=== PATIENT | female | born 1970 | race Hispanic/Latino ===

== ENCOUNTER 2017-01-25 14:57 | Inpatient (IN) | payer MEDICAID ==
--- NOTE | 2017-01-25 15:02 | ED PDOC ---
Arrival/HPI - General Time Seen by Provider: 01/25/17 14:58 Historian: Patient - History of Present Illness Narrative History of Present Illness (Text): 01/25/17 15:01 46 y/o female pmh including htn/hypothyroidism/anemia, nkda, c/o coughing and congestion x 4-5 days plus feeling fatigue. Pt. stated that she is a chronic smoker, been coughing with congestion x 4-5 days, admits frequent heavy menstrual period and not been taking her iron tablets daily, no fever, no night sweat, no dizziness, no change in vision, no palpitation, no rash, no recent traveling outside of the [facility] for the past 4 week, no dizziness. Pt. went to the pmd office and stated that she will need to be evaluated after she received 1 dose of albuterol in the office. Past Medical History - Provider Review Nursing Documentation Reviewed: Yes - Infectious Disease Hx of Infectious Diseases: None - Cardiac Hx Hypertension: Yes - Pulmonary Hx Respiratory Disorders: No - Neurological Hx Neurological Disorder: No - HEENT Hx HEENT Disorder: No - Renal Hx Renal Disorder: No - Endocrine/Metabolic Hx Hypothyroidism: Yes - Hematological/Oncological Hx Blood Disorders: No - Integumentary Hx Dermatological Disorder: No - Musculoskeletal/Rheumatological Hx Musculoskeletal Disorders: No Other/Comment: Right knee injury recently. Pt reports a pull. No other info available. - Gastrointestinal Hx Gastrointestinal Disorders: No - Genitourinary/Gynecological Hx Genitourinary Disorders: No - Psychiatric Hx Psychophysiologic Disorder: No Hx Substance Use: No Family/Social History - Physician Review Nursing Documentation Reviewed: Yes Family/Social History: Unknown Family HX Smoking Status: Heavy Smoker > 10 Cigarettes Daily Hx Alcohol Use: Yes Hx Substance Use: No Allergies/Home Meds Allergies/Adverse Reactions: Allergies No Known Allergies Allergy (Verified 01/25/17 15:22) Home Medications: Home Meds Medication Instructions Recorded Confirmed Metoprolol Succinate [Toprol XL] 50 mg PO DAILY 09/19/16 01/25/17 Review of Systems - Review of Systems Constitutional: Fatigue. absent: Fevers Eyes: absent: Vision Changes ENT: absent: Hearing Changes Respiratory: Cough, Sputum, Wheezing. absent: SOB Cardiovascular: absent: Chest Pain Gastrointestinal: absent: Abdominal Pain, Nausea, Vomiting Musculoskeletal: absent: Arthralgias, Myalgias Skin: absent: Rash, Pruritis, Skin Lesions, Laceration, Abscess, Ulcer, Cellulitis Neurological: absent: Headache, Dizziness, Focal Weakness, Gait Changes, Speech Changes, Facial Droop, Disequilibrium, Seizure, Other Physical Exam Vital Signs Reviewed: Yes Vital Signs Temp Pulse Resp BP Pulse Ox 01/25/17 21:12 99.1 F 86 18 120/71 01/25/17 21:00 87 17 127/67 100 01/25/17 20:27 98.4 F 87 16 129/78 01/25/17 20:12 98.1 F 93 H 18 128/71 01/25/17 20:06 98.9 F 88 17 122/68 01/25/17 18:35 92 H 18 135/72 96 01/25/17 16:19 86 18 113/67 96 01/25/17 15:17 98.6 F 92 H 20 115/69 96 Temperature: Afebrile Blood Pressure: Normal Pulse: Regular Respiratory Rate: Normal Appearance: Positive for: Well-Appearing, Non-Toxic, Ill-Appearing, Unkept, Uncomfortable Pain Distress: None Mental Status: Positive for: Alert and Oriented X 3 - Systems Exam Head: Present: Atraumatic, Normocephalic, Other (no sinus tenderness. ) Pupils: Present: PERRL Extroacular Muscles: Present: EOMI Conjunctiva: Present: Normal Ears: Present: NORMAL TM, Normal Canal. No: Erythema Mouth: Present: Moist Mucous Membranes Pharnyx: No: ERYTHEMA, EXUDATE, Peritonsilar Swelling, Muffled/Hoarse Voice Nose (External): Present: Atraumatic. No: Abrasion, Contusion, Laceration, Lesions Nose (Internal): Present: No Active Bleeding, Rhinorrhea. No: Septal Deviation , Septal Hematoma, Epistaxis Neck: Present: Normal Range of Motion Respiratory/Chest: Present: Clear to Auscultation, Good Air Exchange, Wheezes, Decreased Breath Sounds, Rhonchi, Other (there is bilateral decrease aeration with wheezing and rhonchi). No: Respiratory Distress, Accessory Muscle Use, Retracting, Tachypneic, Tender to Palpation Cardiovascular: Present: Regular Rate and Rhythm, Normal S1, S2, Other (there is 1+ pedal edema bilaterally (according to the patient this has been chronic problem for over 2 years).). No: Murmurs Abdomen: Present: Normal Bowel Sounds. No: Tenderness, Distention, Peritoneal Signs Rectal: Present: Normal Rectal Tone, Other (Female Purchasing And Fiscal Clerk: ERIC Gloria. Guaiac negative). No: Occult Blood, Rectal Tenderness, Gross Blood, Melena, Hemorrhoids, Fissures, Nodule/Mass/Lesions Upper Extremity: Present: Normal Inspection. No: Cyanosis, Edema Lower Extremity: Present: Normal Inspection. No: Edema Neurological: Present: GCS=15, Speech Normal, Motor Func Grossly Intact, Gait Normal, Memory Normal Skin: Present: Warm, Dry, Pale. No: Rashes Psychiatric: Present: Alert, Oriented x 3, Normal Insight, Normal Concentration Medical Decision Making ED Course and Treatment: 01/25/17 15:53 -labs/bnp -chest x-ray -IV solumedrol/duoneb -captain of guards -observe and reasses 01/25/17 18:40 -EKGSR @ 91 BPM, no ST elevation or depression, no T wave inversion, compared with previous ekg. -Guaiac negative -Labs are significant for wbc 1.9 from 6.9 (12/28/2016), hgb 6.3 from 7.5 (12/28), K+ 3.3 (potassium chloride 20meq po ordered), elevation of LFT, UA show +UTI (urine culture and IV rocephine ordered). -Pt. feels fatigue and tired which physically she appears pale plus feeling cold frequently, blood transfusion form filled and signed. -Chest x-ray show: +pneumonia with infiltrate noted. -Based on the PERC rule: pt. is not a risky patient for PE. -Lung has increase aeration but still mild wheezing/rhonchi, will need admission for nebulizer treatment q4-6hrs prn. 01/25/17 18:45 -BNP within normal limit. -Pt. will need admission for blood transfusion and pneumonia with still wheezing. -IV rocephine and azithromycin ordered. -2 units of PRBC ordered with tylenol and benadryl ordered. -Labs and radiology studies explained to the patient, and she agreed to be admitted. -Paging hospitalist now for telemetry admission. 01/25/17 18:50 -Pending for the hospitalist to paged back. -I discussed with Dr. Avalos about the labs/radiology results, he agreed that the patient will need admission and will put in the admission order as well. 01/25/17 19:32 -I spoke to Dr. Fischer, discussed about the case/labs/radiology findings, he will accept the patient and follow up the care for the patient with the resident. -I spoke to the medical scientist Dr. Tonny Ward, who is working with the night hospitalist Dr. Fischer, he will come to evaluate the patient. 01/25/17 20:05 -There is apparently a computer glitched on the PRBC ordered. I spoke to the current BIAS BINDING FOLDER Corry Beyer to call the blood bank that the patient will be only total of 2 units of blood which I asked BIAS BINDING FOLDER Corry to tell the floor RN that the patient will receive total of 2 units as well. -I also spoke to the blood bank as well and stated that she also see the error, stated that the patient will only be getting 2 units of PRBC with my order. - Critical Care Critical Care Minutes: 30 minutes Critical Care Time: Unstable Narrative Critical Care (Text): 01/25/17 19:33 Pt. needs need duoneb/captain of guards/IV solumedrol/Duoneb/symptomatic anemia with 2 units of blood transfusion. Pt. has no complete relief with the duoneb/ IV medication, will require q4-6hrs. of albuterol and need to be admitted to telemetry. - Lab Interpretations Microbiology Results: Microbiology Results 01/25/17 16:35 Urine,Clean Catch Urine Culture - Final Escherichia Coli Lab Results: 01/25/17 16:15 01/25/17 16:15 Lab Results 01/25/17 18:22: Blood Type B POSITIVE, Antibody Screen Negative, Crossmatch See Detail, BBK History Checked No verified bt 01/25/17 16:15: WBC 1.9 L* D, RBC 3.58, Hgb 6.3 L*, Hct 23.6 L, MCV 65.9 L, MCH 17.6 L, MCHC 26.7 L, RDW 22.7 H, Plt Count 130, Gran % 39.4 L, Lymph % (Auto) 42.5 H, [place] % (Auto) 14.5 H, Eos % (Auto) 3.1, Baso % (Auto) 0.5, Gran # 0.76 L , Lymph # 0.8 L, [place] # 0.3, Eos # 0.1, Baso # 0.01, Sodium 142, Potassium 3.3 L , Chloride 108 H, Carbon Dioxide 22, Anion Gap 15, BUN 10, Creatinine 0.7, Est GFR ( Amer) > 60, Est GFR (Non-Af Amer) > 60, Random Glucose 133 H, Calcium 8.3 L, Iron 16 L, TIBC 446, % Saturation 4 L, Ferritin 12.8, Total Bilirubin 0.5, AST 98 H, ALT 116 H, Alkaline Phosphatase 83, NT-Pro-B Natriuret Pep 90.4, Total Protein 7.2, Albumin 3.6, Globulin 3.6, Albumin/Globulin Ratio 1.0 L, Urine Color Yellow, Urine Appearance Sl cloudy, Urine pH 6.0, Ur Specific [place]cl[place] 1.025, Urine Protein Trace H, Urine Glucose (UA) Negative, Urine Ketones Negative, Urine Blood Negative, Urine Nitrate Positive H, Urine Bilirubin Negative, Urine Urobilinogen 0.2, Ur Leukocyte Esterase Negative, Urine RBC Negative, Urine WBC 0 - 2, Ur Epithelial Cells 0 - 2, Urine Bacteria Many, Influenza Typ A,B (EIA) Negative for flu a/b Interpretation: Abnormal lab values - RAD Interpretation Radiology Orders: 01/25/17 15:41 CHEST PORTABLE [RAD] Stat Appian Bpm Developer: Radiologist - EKG Interpretation EKG Interpretation (Text): 01/25/17 18:43 SR @ 91 BPM, no ST elevation or depression, no T wave inversion, compared with previous ekg. Interpreted by ED Physician: Yes Type: 12 lead EKG Comparison: Com.w/previous EKG - Medication Orders Current Medication Orders: Acetaminophen (Tylenol 325mg Tab) 650 mg PO Q4 PRN PRN Reason: Fever >100.4 F Last Admin: 01/27/17 02:57 Dose: 650 MG [facility] Pain/Vitals Document 01/27/17 02:57 TTC (Rec: 01/27/17 02:58 TTC [facility] [id number] Pain Reassessment Is This A Pain ReAssessment? No Sleep Is patient sleeping during reassessment? No Presence of Pain Presence of Pain Yes Pain Scale Used Pain Scale Used Numeric Location Pain Location Body Vascular Manager Description Intermittent Intensity 4 Scale Used Numeric Re-Assess: WOOD Pain/Vitals Document 01/27/17 03:57 CHART (Rec: 01/27/17 09:55 CHART [id number]) Pain Reassessment Is This A Pain ReAssessment? Yes Sleep Is patient sleeping during reassessment? No Presence of Pain Presence of Pain Yes Pain Scale Used Pain Scale Used Numeric Location Pain Location Body Vascular Manager Description Constant Variations/Patterns patient states pain unrelieved with Tylenol. Resident Thompson made aware Pain Behavior Moaning Crying Facial Grimacing Acetaminophen/Butalbital/Caffeine (Fioricet) 1 tab PO Q4H PRN PRN Reason: Headache Last Admin: 01/27/17 11:25 Dose: 1 TAB Albuterol/Ipratropium (Duoneb 3 Mg/0.5 Mg (3 Ml) Ud) 3 ml IH Q2H PRN PRN Reason: Shortness of Breath Albuterol/Ipratropium (Duoneb 3 Mg/0.5 Mg (3 Ml) Ud) 3 ml IH [id number] [facility] Last Admin: 01/28/17 08:11 Dose: 3 ML Benzonatate (Tessalon Perles) 100 mg PO TID [facility] Last Admin: 01/28/17 11:01 Dose: 100 MG Ferrous Sulfate (Feosol Liq) 300 mg PO TID [facility] Last Admin: 01/28/17 11:01 Dose: 300 MG Guaifenesin (Robitussin) 100 mg PO Q4H PRN PRN Reason: Cough Ceftriaxone Sodium (Rocephin 1 Gram Ivpb) 100 mls @ 100 mls/hr IVPB DAILY [facility] PRN Reason: Protocol Last Admin: 01/28/17 11:02 Dose: 100 MLS/HR eMAR Start Stop Document 01/28/17 11:02 RKO (Rec: 01/28/17 11:02 RKO [id number]) Intravenous Solution Start Date 01/28/17 Start Time 11:02 End Date 01/28/17 End time 12:02 Total Infusion Time 60 Levothyroxine Sodium (Synthroid) 100 mcg PO ACB [facility] Last Admin: 01/28/17 08:14 Dose: 100 MCG Metoprolol Succinate (Toprol Xl) 50 mg PO DAILY [facility] Last Admin: 01/27/17 11:25 Dose: 50 MG MAR Pulse and Blood Pressure Document 04/13/17 11:25 CHART (Rec: 01/27/17 11:25 CHART [facility] [id number] Pulse Pulse Rate (60-90) 77 Blood Pressure Blood Pressure (100/60-150/90) 142/78 Multivitamins/Minerals (Therapeutic-M Tab) 1 tab PO DAILY [facility] Last Admin: 01/28/17 11:02 Dose: 1 TAB Pantoprazole Sodium (Protonix Ec Tab) 40 mg PO Q12 [facility] Last Admin: 01/28/17 11:02 Dose: 40 MG Discontinued Medications Acetaminophen (Tylenol 325mg Tab) 650 mg PO ONCE STA Stop: 01/25/17 18:07 Last Admin: 01/25/17 18:32 Dose: 650 MG MAR Pain/Vitals Document 01/25/17 18:32 RR (Rec: 01/25/17 18:32 RR [id number]) Pain Reassessment Is This A Pain ReAssessment? Yes Sleep Is patient sleeping during reassessment? No Presence of Pain Presence of Pain Yes Pain Scale Used Pain Scale Used Numeric Location Pain Location Body Site Generalized Albuterol/Ipratropium (Duoneb 3 Mg/0.5 Mg (3 Ml) Ud) 3 ml IH Q15M [facility] Stop: 01/25/17 16:16 Last Admin: 01/25/17 16:15 Dose: 3 ML Diphenhydramine HCl (Benadryl) 25 mg PO ONCE ONE Stop: 01/25/17 18:07 Last Admin: 01/25/17 18:31 Dose: 25 MG Ceftriaxone Sodium (Rocephin 1 Gram Ivpb) 100 mls @ 200 mls/hr IVPB STAT STA PRN Reason: Protocol Stop: 01/25/17 17:46 Last Admin: 01/25/17 17:50 Dose: 200 MLS/HR eMAR Start Stop Document 01/25/17 17:50 RR (Rec: 01/25/17 17:50 RR [id number]) Intravenous Solution Start Date 01/25/17 Start Time 17:50 End Date 01/25/17 End time 18:20 Total Infusion Time 30 Azithromycin (Zithromax 500mg In Ns) 250 mls @ 167 mls/hr IVPB STAT STA PRN Reason: Protocol Stop: 01/25/17 19:03 Last Admin: 01/25/17 18:31 Dose: 167 MLS/HR eMAR Start Stop Document 04/11/17 18:31 RR (Rec: 01/25/17 18:31 RR [id number]) Intravenous Solution Start Date 01/25/17 Start Time 18:31 End Date 01/25/17 End time 20:01 Total Infusion Time 90 Levofloxacin/Dextrose (Levaquin 500mg) 100 mls @ 100 mls/hr IVPB DAILY [facility] Last Admin: 01/26/17 10:42 Dose: 100 MLS/HR eMAR Start Stop Document 01/26/17 10:42 FIOR (Rec: 01/26/17 10:42 FIOR [facility] [id number] Intravenous Solution Start Date 01/26/17 Start Time 10:42 End Date 01/26/17 End time 11:42 Total Infusion Time 60 Folic Acid 1 mg/ Thiamine HCl 100 mg/ Multivitamins/Vitamin C 10 ml/ Dextrose 1 ,011.2 mls @ 125 mls/hr IV .Q8H6M VI Last Admin: 01/27/17 09:54 Dose: Iron Sucrose 100 mg/ Sodium (Chloride) 105 mls @ 210 mls/hr IVPB ONCE ONE Stop: 01/27/17 09:29 Last Admin: 01/27/17 13:00 Dose: 210 MLS/HR eMAR Start Stop Document 01/27/17 13:00 CHART (Rec: 01/27/17 13:00 CHART [facility] [id number] Intravenous Solution Start Date 01/27/17 Start Time 13:00 End Date 01/27/17 End time 13:30 Total Infusion Time 30 Iodixanol (Visipaque 320 Mg/Ml 100 Ml) Confirm Administered Dose 100 ml IV .STK- MED ONE Stop: 01/25/17 22:45 Levothyroxine Sodium (Synthroid) 75 mcg PO STAT STA Stop: 01/27/17 15:33 Last Admin: 01/27/17 18:04 Dose: 75 MCG Methylprednisolone (Solu-Medrol) 125 mg IVP STAT STA Stop: 01/25/17 15:42 Last Admin: 01/25/17 16:08 Dose: 125 MG IVP Administration Document 01/25/17 16:08 RR (Rec: 01/25/17 16:08 RR [id number]) Charges for Administration # of IVP Administrations 1 Pantoprazole Sodium (Protonix Ec Tab) 40 mg PO 0630 [facility] Last Admin: 01/26/17 06:38 Dose: 40 MG Pantoprazole Sodium (Protonix Inj) 40 mg IVP Q12 [facility] Last Admin: 01/27/17 21:14 Dose: 40 MG IVP Administration Document 01/27/17 21:14 AP (Rec: 01/27/17 21:14 AP [id number]) Charges for Administration # of IVP Administrations 1 Potassium Chloride (K-Dur 20 Meq Er Tab) 20 meq PO STAT STA Stop: 01/25/17 17:17 Last Admin: 01/25/17 17:50 Dose: 20 MEQ Potassium Chloride (Potassium Chloride Oral Soln) 40 meq PO ONCE ONE Stop: 01/26/17 00:53 Last Admin: 01/26/17 01:04 Dose: 40 MEQ - PA / CATALOG LIBRARIAN / Resident Statement / has reviewed & agrees with the documentation as recorded. Disposition/Present on Arrival - Present on Arrival Any Indicators Present on Arrival: No History of DVT/PE: No History of Uncontrolled Diabetes: No Urinary Catheter: No History of Decub. Ulcer: No History Surgical Site Infection Following: None - Disposition Have Diagnosis and Disposition been Completed?: Yes Diagnosis: Leukopenia, Pneumonia, Hypokalemia, Symptomatic anemia Disposition: HOSPITALIZED Disposition Time: 17:16 Patient Plan: Admission, Telemetry Patient Problems: Current Active Problems Problem Status Diagnosed Hypokalemia Acute Leukopenia Acute Pneumonia Acute Symptomatic anemia Acute Condition: GUARDED
[2017-01-25] MEDS: Albuterol-Ipratrop 3 mg / 0.5 (3 ml) UD IH SCH ×3 (15:45→16:15)
[2017-01-25 16:28] LABS: ADD MANUAL DIFF? NO
[2017-01-25 16:29] LABS: URINE BILIRUBIN NEGATIVE (NEGATIVE); URINE BLOOD NEGATIVE (NEGATIVE); URINE GLUCOSE (UA) NEGATIVE (NEGATIVE); URINE KETONE NEGATIVE (NEGATIVE); URINE LEUKOCYTE ESTERASE NEGATIVE Leu/uL (NEGATIVE); URINE PROTEIN TRACE mg/dL (<30 mg/dL); URINE UROBILINOGEN 0.2 E.U./dL (<1 E.U./dL)
[2017-01-25 16:35] LABS: URINE APPEARANCE SL CLOUDY (CLEAR); URINE COLOR YELLOW (YELLOW)
[2017-01-25 16:36] LABS: URINE BACTERIA MANY (NEG); URINE EPITHELIAL CELLS 0 - 2 /hpf (0-5); URINE RBC NEGATIVE /hpf (0-2); URINE WBC 0 - 2 /hpf (0-6)
[2017-01-25 16:39] LABS: BASO # 0.01 K/mm3 (0.0-2.0); BASO % 0.5 % (0.0-3.0); EOS # 0.1 (0.0-0.7); EOS % 3.1 % (1.5-5.0); GRAN # 0.76 (1.4-6.5); GRAN % 39.4 % (50.0-68.0); LYMPH # 0.8 (1.2-3.4); LYMPH % 42.5 % (22.0-35.0); MEAN CELL VOLUME 65.9 fL (80.0-105.0); MEAN CORPUSCULAR HEMOGLOBIN 17.6 pg (25.0-35.0); MEAN CORPUSCULAR HGB CONC 26.7 g/dl (31.0-37.0); MONO # 0.3 (0.1-0.6); MONO % 14.5 % (1.0-6.0); PLATELET COUNT 130 10^3/uL (120.0-450.0); RED CELL DISTRIBUTION WIDTH 22.7 % (11.5-14.5)
[2017-01-25 16:42] LABS: ALKALINE PHOSPHATASE 83 U/L (38-133); ALT/SGPT 116 U/L (7-56); AST/SGOT 98 U/L (15-39); BILIRUBIN,TOTAL 0.5 mg/dL (0.2-1.3); BLOOD UREA NITROGEN 10 mg/dL (7-21); CALCIUM 8.3 mg/dL (8.4-10.5); CARBON DIOXIDE 22 mmol/L (21-33); CHLORIDE 108 mmol/L (98-107); GFR AFRICAN-AMERICAN > 60; GLUCOSE,RANDOM 133 mg/dL (70-110); POTASSIUM 3.3 mmol/L (3.6-5.0); SODIUM 142 mmol/L (132-148); TOTAL PROTEIN 7.2 g/dL (5.8-8.3)
[2017-01-25 16:46] LABS: WHITE BLOOD COUNT 1.9 10^3/ul (4.5-11.0)
[2017-01-25 16:47] LABS: HEMATOCRIT 23.6 % (36.0-48.0)
[2017-01-25] MEDS ORDERED: Potassium Chloride 20 mEq ER Tab PO STA (17:16)
[2017-01-25] MEDS ORDERED: cefTRIAXone 1 gm 100 ML IVPB STA (17:17)
[2017-01-25] MEDS ORDERED: Azithromycin 500MG/NS 250ml 250 ML IVPB STA (17:34)
[2017-01-25] MEDS ORDERED: Albuterol-Ipratrop 3 mg / 0.5 (3 ml) UD IH PRN (20:19)
[2017-01-25] MEDS ORDERED: Iodixanol 320 MG/ML 100 ML BOTTLE IV ONE (22:44)
[2017-01-25 22:52] LABS: IRON 16 ug/dL (45-180)
[2017-01-26] MEDS: Albuterol-Ipratrop 3 mg / 0.5 (3 ml) UD IH SCH ×6 (00:10→20:34)
--- NOTE | 2017-01-26 00:19 | CP.PCM.HP ---
<TonnyEd - Last Filed: 01/26/17 00:13> History of Present Illness - History of Present Illness History of Present Illness: Ed Lancaster D.O. PGY-1, Internal Medicine Resident, Night Float Admission Note CC: cough and fatigue for 5 days 46 year old female with a PMH of HTN, hypothyroidism, and anemia who presents [place] [facility] [place] with complaints of cough and fatigue for 5 days. 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 Patient has noticed since Tuesday she has been feeling worse and worse, having dry cough, fatigue, subjective fevers, chills, nightsweats, urinary frequency but no burning. Patient states that she had been taking ibuprofen but noted that it would make her stomach hurt. Upon further questioning, patient admits that she has been taking the ibuprofen for "a very long time," 800mg up to every four hours due to right knee pain. Patient noted that her right knee pain worsened after she gained more weight, about 70 lbs in the last year. 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 Patient was given ferrous sulfate by her small engine mechanic due to having heavy periods as well but she admits she is noncompliant. Patient is and has monthly periods that last 5-6 days, sometimes more, and have been very very heavy with big clots. Patient admits that she has been more tired lately and sometimes feels out of breath. PMD: Dr. 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 absent: Chest Pain - Respiratory Respiratory: Cough, Dyspnea. absent: Hemoptysis - Gastrointestinal Gastrointestinal: Diarrhea, Melena. absent: Abdominal Pain, Nausea, Vomiting - Genitourinary Genitourinary: Urinary Incontinence, Urinary Frequency. absent: Dysuria - Reproductive: Female Reproductive:Female: Menses 1-7 Days, Heavy Menses - Menstruation Menstruation: Menses 1-7 Days, Heavy Menses - Musculoskeletal Musculoskeletal: Arthralgias - Integumentary Integumentary: absent: Pruritus, Rash, Skin Ulcer - Neurological Neurological: absent: Convulsions, Dizziness, Tremor, Weakness Past Patient History - Infectious Disease Hx of Infectious Diseases: None - Past Social History Smoking Status: Heavy Smoker > 10 Cigarettes Daily - CARDIAC Hx Hypertension: Yes - PULMONARY Hx Respiratory Disorders: No - NEUROLOGICAL Hx Neurological Disorder: No - HEENT Hx HEENT Problems: No - RENAL Hx Chronic Kidney Disease: No - ENDOCRINE/METABOLIC Hx Hypothyroidism: Yes - HEMATOLOGICAL/ONCOLOGICAL Hx Blood Disorders: No - INTEGUMENTARY Hx Dermatological Problems: No - MUSCULOSKELETAL/RHEUMATOLOGICAL Hx Musculoskeletal Disorders: No Other/Comment: Right knee injury recently. Pt reports a pull. No other info available. - GASTROINTESTINAL Hx Gastrointestinal Disorders: No - GENITOURINARY/GYNECOLOGICAL Hx Genitourinary Disorders: No - PSYCHIATRIC Hx Psychophysiologic Disorder: No Hx Substance Use: No - SURGICAL HISTORY Hx Surgeries: No Meds Allergies/Adverse Reactions: Allergies Allergy/AdvReac Type Severity Reaction Status Date / Time No Known Allergies Allergy Verified 01/25/17 15:22 Physical Exam - Constitutional Additional comments: well developed, morbidly obese female in NAD, daughter and mother at bedside - Head Exam Head Exam: ATRAUMATIC, NORMOCEPHALIC - Eye Exam Eye Exam: EOMI, PERRL. absent: Conjunctival injection, Scleral icterus - ENT Exam ENT Exam: Mucous Membranes Moist, Normal Oropharynx - Neck Exam Additional comments: soft, supple, no LAD - Respiratory Exam Respiratory Exam: Decreased Breath Sounds (bibasilar), Rhonchi (BL bases), Wheezes (expiratory). absent: Rales - Cardiovascular Exam Cardiovascular Exam: RRR, +S1, +S2. absent: Gallop, Rubs, Systolic Murmur - GI/Abdominal Exam GI & Abdominal Exam: Normal Bowel Sounds, Soft. absent: Distended, Tenderness - Extremities Exam Extremities exam: Positive for: normal capillary refill, pedal edema (+2 up to midshin), pedal pulses present. Negative for: calf tenderness, tenderness - Back Exam Back exam: absent: CVA tenderness (L), CVA tenderness (R), paraspinal tenderness , vertebral tenderness - Neurological Exam Neurological exam: Alert, CN II-XII Intact, Oriented x3 - Skin Skin Exam: Dry, Intact, Warm Results - Vital Signs Recent Vital Signs: Last Vital Signs Temp 98.0 F 01/26/17 00:04 Pulse 83 01/26/17 00:04 Resp 20 01/26/17 00:04 BP 125/72 01/26/17 00:04 Pulse Ox 100 01/25/17 21:00 - Labs Result Diagrams: 01/25/17 16:15 01/25/17 16:15 Labs: Laboratory Results - last 24 hr 01/25/17 18:50 Blood Type Confirm B POSITIVE Assessment & Plan - Assessment and Plan (Free Text) Assessment: 46 year old female with a PMH of HTN, hypothyroidism, and anemia who presents with complaints of cough and fatigue for 5 days. Plan: 1. Microcytic Anemia Likely 2/2 menorrhagia and medication non-compliance vs GI ulcer or a combination Will be receiving 2U PRBCs Will get iron, TIBC, and ferritin from pre-infusion blood Re-enforced compliance to patient Will recheck s/p transfusion Hemodynamically stable Stool occult ordered Started protonix Started on ferrous sulfate and MVI Vitals q4h NC O2 2L 2. Cough and SOB Likely 2/2 viral infection vs pneumonia vs possible PE vs bronchitis CXR reviewed by myself, what is seen is actually soft tissue changes but given limitations of study an infiltrate cannot be ruled out Will get chest CT with PE protocol Started tessalon perles Started duonebs q4h and q2h PRN Started levaquin Ordered incentive spirometer to encourage deep breathing 3. Leukopenia As mentioned above suspicion for viral etiology vs hypothyroidism related Previous labs reviewed and last normal WBC less than a month ago on 12/28 With anemia and almost low platelets she almost pancytopenic which can be caused by viral infection Afebrile HIV testing ordered Continue to monitor after blood transfusion 4. Transaminitis Possibly due to her binge drinking on the weekends vs from heavy ibuprofen use vs fatty liver disease Hepatitis panel ordered Lipid panel ordered Hepatic and spleen US ordered 5. Hypothyroidism Known non-compliant, will order Thyroid profile and determine dosing 6. Hypokalemia Mild, repleted, will check magnesium Will recheck CMP with repeat CBC after infusion GI/DVT ppx: protonix/SCDs, no lovenox given current anemia and bleeding risk Patient was seen and examined at bedside and case was discussed at length with attending physician. - Date & Time Date: 01/26/17 Time: 00:15 <Cristobal Fischer P - Last Filed: 02/06/17 20:15> Results - Vital Signs Recent Vital Signs: Last Vital Signs Temp 98.3 F 01/29/17 05:48 Pulse 88 01/29/17 10:00 Resp 20 01/29/17 05:48 BP 127/74 01/29/17 05:48 Pulse Ox 97 01/29/17 05:48 - Labs Result Diagrams: 01/29/17 07:41 01/29/17 07:41 Attending/Attestation - Attestation I have personally seen and examined this patient.: Yes I have fully participated in the care of the patient.: Yes I have reviewed all pertinent clinical information: Yes
[2017-01-26] MEDS ORDERED: guaiFENesin DM 100 mg-10 mg/5 ml UD PO PRN (00:37)
[2017-01-26] MEDS ORDERED: Potassium Chloride 40 mEq/30 ml LIQ UD PO ONE (00:52)
[2017-01-26 03:08] VITALS: BMI 15.4
[2017-01-26] MEDS ORDERED: Pantoprazole 40 mg EC Tab PO SCH (06:30)
[2017-01-26 07:26] LABS: GRAN # 1.51 (1.4-6.5); GRAN % 55.9 % (50.0-68.0); HEMATOCRIT 28.4 % (36.0-48.0); LYMPH # 0.8 (1.2-3.4); LYMPH % 28.5 % (22.0-35.0); MEAN CELL VOLUME 68.8 fL (80.0-105.0); MEAN CORPUSCULAR HEMOGLOBIN 18.9 pg (25.0-35.0); MEAN CORPUSCULAR HGB CONC 27.5 g/dl (31.0-37.0); MONO # 0.4 (0.1-0.6); MONO % 15.6 % (1.0-6.0); PLATELET COUNT 108 10^3/uL (120.0-450.0); RED CELL DISTRIBUTION WIDTH 24.1 % (11.5-14.5)
[2017-01-26 07:43] LABS: ALB/GLOB RATIO 1.1 (1.1-1.8); ALKALINE PHOSPHATASE 90 U/L (38-133); ALT/SGPT 108 U/L (7-56); AST/SGOT 87 U/L (15-39); BILIRUBIN,TOTAL 0.5 mg/dL (0.2-1.3); BLOOD UREA NITROGEN 10 mg/dL (7-21); CALCIUM 8.6 mg/dL (8.4-10.5); CARBON DIOXIDE 21 mmol/L (21-33); CHLORIDE 111 mmol/L (98-107); CHOLESTEROL 129 mg/dL (130-200); GFR AFRICAN-AMERICAN > 60; GLUCOSE,RANDOM 186 mg/dL (70-110); MAGNESIUM 1.9 mg/dL (1.7-2.2); POTASSIUM 4.4 mmol/L (3.6-5.0); SODIUM 142 mmol/L (132-148); TOTAL PROTEIN 7.2 g/dL (5.8-8.3)
[2017-01-26 08:08] LABS: WHITE BLOOD COUNT 2.7 10^3/ul (4.5-11.0)
[2017-01-26 08:10] LABS: ADD MANUAL DIFF? NO
[2017-01-26 08:18] LABS: FREE T4 0.48 ng/dL (0.78-2.19); THYROID STIMULATING HORMONE 5.1 MIU/ml (0.46-4.68)
[2017-01-26] MEDS: Ferrous Sulfate 300 mg/5 mL Liq UD PO SCH ×3 (09:18→17:20)
[2017-01-26] MEDS: Multivitamin With Minerals Tab PO SCH (09:18)
--- NOTE | 2017-01-26 09:27 | RAD ---
HISTORY: cough x 4-5 days COMPARISON: 12/28/2016 FINDINGS: LUNGS: An ill-defined opacity from the right mid to right lung base is noted. An infiltrate is the most likely etiology . Interval pleural-based pathology seen on end is another. This is an interval change. Follow-up to resolution is recommended to exclude an underlying mass. Infiltrate is favored given the short interval time frame between exams PLEURA: No significant pleural effusion identified, no pneumothorax apparent. CARDIOVASCULAR: Normal. OSSEOUS STRUCTURES: No significant abnormalities. VISUALIZED UPPER ABDOMEN: Normal. OTHER FINDINGS: None. IMPRESSION: Ill-defined opacity right mid to right lower lung zone consistent with a infiltrate evident clinical presentation. Other etiologies, are not excluded. Follow-up to complete resolution recommended . This current appearance is an interval change
--- NOTE | 2017-01-26 09:29 | CT ---
PROCEDURE: CT Chest with contrast (Pulmonary Angiogram) HISTORY: SOB, obesity, inactivity COMPARISON: None available. TECHNIQUE: Axial computed tomography images were obtained of the chest in the pulmonary arterial phase of enhancement. Coronal and sagittal reformatted images were created and reviewed. Intravenous contrast dose: 96 cc of Visipaque Radiation dose: Total exam DLP = 840 mGy-cm. This CT exam was performed using one or more of the following dose reduction techniques: Automated exposure control, adjustment of the mA and/or kV according to patient size, and/or use of iterative reconstruction technique. FINDINGS: PULMONARY ARTERIES: Unremarkable. No pulmonary embolism. AORTA: No acute findings. No thoracic aortic aneurysm. LUNGS: Unremarkable. No nodule, mass or pulmonary consolidation. PLEURAL SPACES: Unremarkable. No effusion or pneuomothorax. HEART: Unremarkable. No cardiomegaly. No significant pericardial effusion. LYMPH NODES: No lymphadenopathy. BONES, CHEST WALL: Unremarkable. No fracture or destructive lesion OTHER FINDINGS: The report concurs with the preliminary [facility] report IMPRESSION: Unremarkable CT pulmonary angiogram. No pulmonary embolus.
[2017-01-26] MEDS ORDERED: cefTRIAXone 1 gm 100 ML IVPB SCH ×2 (10:00)
[2017-01-26] MEDS ORDERED: Azithromycin 500MG/NS 250ml 250 ML IVPB SCH ×2 (10:00)
--- NOTE | 2017-01-26 10:52 | US ---
HISTORY: Transaminitis, enlarged spleen COMPARISON: None. TECHNIQUE: Sonographic evaluation of the right upper quadrant of the abdomen. FINDINGS: LIVER: Measures 18.1 cm in length. Increase in size Increased echogenicity of the liver parenchyma. No mass. No intrahepatic bile duct dilatation. GALLBLADDER: No gallstones. There is pericholecystic sliver like fluid//of gallbladder wall thickening and edema suggested measuring up to 7 mm. COMMON BILE DUCT: Measures 5.4 mm. No stones. No dilatation. PANCREAS: Unremarkable as visualized. No mass. No ductal dilatation. RIGHT KIDNEY: Measures 13 cm in length. Normal echogenicity. No calculus, mass, or hydronephrosis. AORTA: No aneurysmal dilatation. IVC: Unremarkable. OTHER FINDINGS: The spleen measures 16 cm and appears prominent. The left kidney is unremarkable left kidney measures 15 cm in maximum dimension IMPRESSION: Gallbladder wall edema/sliver like fluid resulting in gallbladder wall thickening. No gallstones noted. No reported sonographic [place] sign. No dilated ducts . Correlation with albumin levels Mild hepatic splenomegaly. Increased echotexture consistent with diffuse fatty infiltration.
[2017-01-26] MEDS ORDERED: Ciprofloxacin 200mg/100ml D5W 100 ML IVPB SCH (12:00)
[2017-01-26] MEDS ORDERED: guaiFENesin 100 mg/5 ml Syrup UD PO PRN (12:17)
[2017-01-26] MEDS: Folic Acid 1 MG, Thiamine 100 MG, Multivitamin (MVI) 10 ML in Dextrose 5% In Water 1,00... IV SCH ×2 (14:41→22:20)
--- NOTE | 2017-01-26 15:42 | CARD ---
APPROVED REPORT EKG Measurement Heart [id number] ND [id number] [id number] <Conclusion> Sinus rhythm with APC NSSTW changes Mildly prolonged QTc
[2017-01-27] MEDS: Albuterol-Ipratrop 3 mg / 0.5 (3 ml) UD IH SCH ×6 (00:23→19:38)
[2017-01-27 08:13] LABS: ADD MANUAL DIFF? NO
[2017-01-27 08:24] LABS: BASO # 0.01 K/mm3 (0.0-2.0); BASO % 0.2 % (0.0-3.0); EOS % 0.2 % (1.5-5.0); GRAN # 2.07 (1.4-6.5); GRAN % 49.8 % (50.0-68.0); LYMPH # 1.7 (1.2-3.4); LYMPH % 40.9 % (22.0-35.0); MEAN CELL VOLUME 69.1 fL (80.0-105.0); MEAN CORPUSCULAR HEMOGLOBIN 18.7 pg (25.0-35.0); MONO # 0.4 (0.1-0.6); MONO % 8.9 % (1.0-6.0); PLATELET COUNT 102 10^3/uL (120.0-450.0); RED CELL DISTRIBUTION WIDTH 24.2 % (11.5-14.5); WHITE BLOOD COUNT 4.2 10^3/ul (4.5-11.0)
[2017-01-27] MEDS ORDERED: Iron Sucrose 100 mg/5 ml Inj IVP ONE (08:52)
--- NOTE | 2017-01-27 09:39 | US ---
HISTORY: Menorrhagia. Menstrual status: Regular, LMP 01/01/2017. COMPARISON: 01/26/2014. TECHNIQUE: Transabdominal only. Real-time technique with 2D, duplex and color Doppler FINDINGS: UTERUS: Measures 13 x 7.5 cm. Normal in size and appearance. No fibroid or other mass lesion seen. ENDOMETRIUM: Measures 13.2 mm in diameter. Thickened endometrium without focal or diffuse abnormalities. CERVIX: No cervical abnormality identified. RIGHT OVARY: Measures 1.7 x 3.3 cm. No solid mass. Normal flow. LEFT OVARY: Measures 2.5 x 3.6 cm. No solid mass. Normal flow. FREE FLUID: No significant free fluid noted. OTHER FINDINGS: None. IMPRESSION: Endometrial hypertrophy without focal or diffuse abnormality. Unremarkable uterus and endometrial echo complex.
[2017-01-27] MEDS: Ferrous Sulfate 300 mg/5 mL Liq UD PO SCH ×3 (09:53→17:27)
[2017-01-27] MEDS: Folic Acid 1 MG, Thiamine 100 MG, Multivitamin (MVI) 10 ML in Dextrose 5% In Water 1,00... IV SCH (09:54)
[2017-01-27] MEDS: Multivitamin With Minerals Tab PO SCH (09:54)
[2017-01-27] MEDS: cefTRIAXone 1 gm 100 ML IVPB SCH (09:54)
[2017-01-27] MEDS ORDERED: Apap-Butalbital-Caffeine 325-50-40mg Tab PO PRN (11:00)
[2017-01-27 11:06] LABS: RETIC% 0.9 % (0.5-1.5)
[2017-01-27] MEDS ORDERED: Metoprolol Succinate 50 mg XL Tab PO SCH (11:15)
--- NOTE | 2017-01-27 11:21 | CON ---
DATE: 01/27/2017 REASON FOR CONSULTATION: Anemia. The patient is a 46-year-old female with past medical history significant for hypertension, hypothyro idism, anemia, who presented to the Emergency Room with complaints of cough and fatigue for 5 days. She was noted to have a hemoglobin of 6.3 on admission status post PRBC transfusion and, now hemoglob in has improved, but she is still very fatigued, and has also been taking ibuprofen for a very long t gonzalo for her right knee pain. She also has complaints of migraine headaches. She is known to have fibroid uterus, but has not had a hysterectomy done, and has been contemplating it. She is advised on taking p.o. iron supplements at home, but has been noncompliant, not because of con stipation, but just because the patient forgets to take them. She is also an alcohol abuser, but once again, has not been taking her medications as above. PAST MEDICAL HISTORY: As above, hypertension, hypothyroidism, anemia, and arthritis. No known drug allergies. SOCIAL HISTORY: Positive for smoking 1 pack per day for over 20 years, also alcohol abuse. Denies a ny drug abuse. Lives with her kids. 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 FAMILY HISTORY: Otherwise, noncontributory. MEDICATIONS: As per the HPI. REVIEW OF SYSTEMS: As per the HPI. VITALS: Reveal a temperature of 98.6, pulse of 75, respiratory rate of 22, and a blood pressure of 1 30/77. In general, the patient is a middle-aged female sitting up in bed, in no acute distress. HEAD AND NECK: Normocephalic, atraumatic. EYES: Pupils equal, round, reactive to light and accommodation. Extraocular muscles are intact. Th ere is pallor, no icterus is noted. NECK: Supple with no adenopathy, no JVD, no thyromegaly. LUNGS: Clear to auscultation bilaterally with no rales or rhonchi. CARDIOVASCULAR: S1, S2 is heard. ABDOMEN EXAMINATION: Positive bowel sounds, soft, nontender, nondistended, no organomegaly is palpat ed. EXTREMITIES: There is no edema, clubbing, or cyanosis. Her labs reveal a white count of 4.2, on admission it was 1.9; hemoglobin 8.1, and a platelet count o f 102. White count diff shows some lymphocytosis. Her chemistries are within normal limits. Iron s tudies are consistent with iron deficiency; B12, folate are pending. TSH is also high at 33. Her ur ine is positive for nitrites. Serology is negative for hepatitis as well as HIV and influenza. ASSESSMENT AND PLAN: Middle-aged female with severe iron deficiency anemia secondary to dysfunctiona l uterine bleeding. She is currently being worked up for fibroid uterus. Will need IV iron supplementation, as she has been unable to keep up with p.o. supplementation. Also needs a RISK MANAGEMENT SPECIALIST evaluation for her fibroid uterus for possible hysterectomy, as the patient is done havi ng children. She also has a pronounced leukopenia as well as thrombocytopenia, which is likely secondary to her al cohol abuse. Will check B12 and folate levels as well. May also need a flow cytometry done to rule out any bone marrow pathology. Thank you for the consult. We will follow. Jason Weaver MD cc: [id number] TT: 01/27/2017 11:21:31 Confirmation # [id number] Dictation # [id number]
--- NOTE | 2017-01-27 11:57 | CP.PCM.CON ---
<Anna Islas - Last Filed: 01/27/17 11:46> History of Present Illness - History of Present Illness History of Present Illness: Gastroenterology Fellow/PGY4 Consult Note 46 year old female with history of Hypothyroidism, Hypertension, and menorrhagia presenting with cough, shortness of breath, and fatigue. Patient describes having four diarrheal episodes daily from tuesday to tuesday after sick contact with her son associated with abdominal pain. She notes a couple of episodes being black in color and her mother mentioned she may be bleeding and to stop taking Ibuprofen. She endorses daily use of four tablets of Ibuprofen 800mg since June alongwith aspirin for migraines and knee pain. Endorses use of iron supplementation for the last three years due to heavy menstrual cycles lasting 5-7 days with blood clots and use of 4-5 sanitary napkins daily. She denies prior change in the color of her stools. Denies nausea, vomiting, hematemesis, constipation, fever, chills, sweats, or unintentional weight loss. No prior EGD or colonoscopy. Family- denies colon cancer, parents- Hypertension, Diabetes Social-previous 20 pack years, quit three weeks ago; 6 -12oz beers 1-2 weekends of month for 1-2 months, previous social use Surgery-none Review of Systems - Review of Systems Review of Systems: A 12-point review of systems negative except for as above Past Patient History - Infectious Disease Hx of Infectious Diseases: None - Past Social History Smoking Status: Former Smoker - CARDIAC Hx Hypertension: Yes - PULMONARY Hx Respiratory Disorders: No - NEUROLOGICAL Hx Neurological Disorder: No - HEENT Hx HEENT Problems: No - RENAL Hx Chronic Kidney Disease: No - ENDOCRINE/METABOLIC Hx Hypothyroidism: Yes - HEMATOLOGICAL/ONCOLOGICAL Hx Blood Disorders: No - INTEGUMENTARY Hx Dermatological Problems: No - MUSCULOSKELETAL/RHEUMATOLOGICAL Hx Falls: No - GASTROINTESTINAL Hx Gastrointestinal Disorders: No - GENITOURINARY/GYNECOLOGICAL Hx Genitourinary Disorders: No - PSYCHIATRIC Hx Substance Use: No - SURGICAL HISTORY Hx Surgeries: No Meds Allergies/Adverse Reactions: Allergies Allergy/AdvReac Type Severity Reaction Status Date / Time No Known Allergies Allergy Verified 01/25/17 15:22 - Medications Medications: Current Medications Acetaminophen (Tylenol 325mg Tab) 650 mg PO Q4 PRN PRN Reason: Fever >100.4 F Last Admin: 01/27/17 02:57 Dose: 650 mg Acetaminophen/Butalbital/Caffeine (Fioricet) 1 tab PO Q4H PRN PRN Reason: Headache Last Admin: 01/27/17 11:25 Dose: 1 tab Albuterol/Ipratropium (Duoneb 3 Mg/0.5 Mg (3 Ml) Ud) 3 ml IH Q2H PRN PRN Reason: Shortness of Breath Albuterol/Ipratropium (Duoneb 3 Mg/0.5 Mg (3 Ml) Ud) 3 ml IH [id number] [facility] Last Admin: 01/27/17 07:47 Dose: 3 ml Benzonatate (Tessalon Perles) 100 mg PO TID [facility] Last Admin: 01/27/17 09:54 Dose: 100 mg Ferrous Sulfate (Feosol Liq) 300 mg PO TID [facility] Last Admin: 01/27/17 09:53 Dose: 300 mg Guaifenesin (Robitussin) 100 mg PO Q4H PRN PRN Reason: Cough Ceftriaxone Sodium (Rocephin 1 Gram Ivpb) 100 mls @ 100 mls/hr IVPB DAILY [facility] PRN Reason: Protocol Last Admin: 01/27/17 09:54 Dose: 100 mls/hr Metoprolol Succinate (Toprol Xl) 50 mg PO DAILY [facility] Last Admin: 01/27/17 11:25 Dose: 50 mg Multivitamins/Minerals (Therapeutic-M Tab) 1 tab PO DAILY [facility] Last Admin: 01/27/17 09:54 Dose: 1 tab Pantoprazole Sodium (Protonix Inj) 40 mg IVP Q12 [facility] Last Admin: 01/27/17 09:54 Dose: 40 mg Physical Exam - Constitutional Appears: Non-toxic, No Acute Distress - Head Exam Head Exam: ATRAUMATIC, NORMOCEPHALIC - Eye Exam Eye Exam: EOMI, PERRL Pupil Exam: PERRL. absent: Miosis, Mydriatic - ENT Exam ENT Exam: Mucous Membranes Moist, Normal Oropharynx - Neck Exam Neck exam: Positive for: Full Rom, Normal Inspection - Respiratory Exam Respiratory Exam: Clear to Auscultation Bilateral. absent: Rales, Rhonchi, Wheezes - Cardiovascular Exam Cardiovascular Exam: RRR, +S1, +S2. absent: Gallop, Rubs - GI/Abdominal Exam GI & Abdominal Exam: Normal Bowel Sounds, Soft. absent: Distended, Firm, Guarding, Organomegaly, Rebound, Rigid, Tenderness - Extremities Exam Extremities exam: Positive for: full ROM. Negative for: pedal edema - Neurological Exam Neurological exam: Alert - Psychiatric Exam Psychiatric exam: Normal Affect, Normal Mood - Skin Skin Exam: Dry, Intact, Normal Color, Warm Results - Vital Signs Recent Vital Signs: Last Vital Signs Temp 98.6 F 01/27/17 06:00 Pulse 77 01/27/17 11:25 Resp 22 01/27/17 06:00 BP 142/78 01/27/17 11:25 Pulse Ox 95 01/27/17 06:00 - Labs Result Diagrams: 01/27/17 07:00 01/26/17 06:45 Labs: Laboratory Results - last 24 hr 01/26/17 01/26/17 01/27/17 06:45 06:54 07:00 WBC 4.2 L D RBC 4.34 Hgb 8.1 L Hct 30.0 L MCV 69.1 L MCH 18.7 L MCHC 27.0 L RDW 24.2 H Plt Count 102 L Gran % 49.8 L Lymph % (Auto) 40.9 H [place] % (Auto) 8.9 H Eos % (Auto) 0.2 L Baso % (Auto) 0.2 Gran # 2.07 Lymph # 1.7 [place] # 0.4 Eos # 0.0 Baso # 0.01 Retic Count Hemoglobin A1c 5.8 Procalcitonin < 0.05 L Free T4 TSH 3rd Generation Hepatitis A IgM Ab Negative Hep Bs Antigen Negative Hep B Core IgM Ab Negative Hepatitis C Antibody Negative HIV 1&2 Ag/Ab, 4th Gen Nonreactive 01/27/17 01/27/17 01/27/17 07:20 07:30 08:00 WBC RBC Hgb Hct MCV MCH MCHC RDW Plt Count Gran % Lymph % (Auto) [place] % (Auto) Eos % (Auto) Baso % (Auto) Gran # Lymph # [place] # Eos # Baso # Retic Count 0.90 Hemoglobin A1c Procalcitonin Free T4 0.61 L TSH 3rd Generation 33.40 H Hepatitis A IgM Ab Hep Bs Antigen Hep B Core IgM Ab Hepatitis C Antibody HIV 1&2 Ag/Ab, 4th Gen Assessment & Plan - Assessment and Plan (Free Text) Assessment: 46 year old female with history of Hypothyroidism, Hypertension, and menorrhagia presenting with cough, shortness of breath, and fatigue. Active treatment of iron deficiency anemia with new onset pancytopenia. No prior EGD or colonoscopy. Plan: >no overt signs of GI blood loss >FOBT negative >status pust 2 units pRBCs >monitor H/H >continue PPI >high risk for peptic ulcer disease with NSAIDs use >patient refuses endoscopic evaluation >elevated transaminases >Hepatitis panel negative >ordered autoimmune workup: ASMA, CHARLEEN, AMA, LKM, IgG/A/M >Hematology-follow up recommendations >on Levofloxacin- Ecoli UTI >extensive counselling provided on benefit of EGD and colonoscopy >counselled on outpatient GI follow up if patient would like to consider endoscopic evaluation in the future >thank you for opportunity to participate in the care of this patient. Contact with questions/ concerns <Tuan Wall - Last Filed: 01/27/17 14:18> Meds - Medications Medications: Current Medications Acetaminophen (Tylenol 325mg Tab) 650 mg PO Q4 PRN PRN Reason: Fever >100.4 F Last Admin: 01/27/17 02:57 Dose: 650 mg Acetaminophen/Butalbital/Caffeine (Fioricet) 1 tab PO Q4H PRN PRN Reason: Headache Last Admin: 01/27/17 11:25 Dose: 1 tab Albuterol/Ipratropium (Duoneb 3 Mg/0.5 Mg (3 Ml) Ud) 3 ml IH Q2H PRN PRN Reason: Shortness of Breath Albuterol/Ipratropium (Duoneb 3 Mg/0.5 Mg (3 Ml) Ud) 3 ml IH [id number] [facility] Last Admin: 01/27/17 13:05 Dose: 3 ml Benzonatate (Tessalon Perles) 100 mg PO TID [facility] Last Admin: 01/27/17 13:30 Dose: 100 mg Ferrous Sulfate (Feosol Liq) 300 mg PO TID [facility] Last Admin: 01/27/17 13:30 Dose: 300 mg Guaifenesin (Robitussin) 100 mg PO Q4H PRN PRN Reason: Cough Ceftriaxone Sodium (Rocephin 1 Gram Ivpb) 100 mls @ 100 mls/hr IVPB DAILY [facility] PRN Reason: Protocol Last Admin: 01/27/17 09:54 Dose: 100 mls/hr Metoprolol Succinate (Toprol Xl) 50 mg PO DAILY [facility] Last Admin: 01/27/17 11:25 Dose: 50 mg Multivitamins/Minerals (Therapeutic-M Tab) 1 tab PO DAILY [facility] Last Admin: 01/27/17 09:54 Dose: 1 tab Pantoprazole Sodium (Protonix Inj) 40 mg IVP Q12 [facility] Last Admin: 01/27/17 09:54 Dose: 40 mg Results - Vital Signs Recent Vital Signs: Last Vital Signs Temp 97.7 F 01/27/17 11:54 Pulse 77 01/27/17 11:54 Resp 18 01/27/17 11:54 BP 142/82 01/27/17 11:54 Pulse Ox 95 01/27/17 06:00 - Labs Result Diagrams: 01/27/17 07:00 01/27/17 08:00 Labs: Laboratory Results - last 24 hr 01/26/17 01/27/17 01/27/17 06:45 07:00 07:20 WBC 4.2 L D RBC 4.34 Hgb 8.1 L Hct 30.0 L MCV 69.1 L MCH 18.7 L MCHC 27.0 L RDW 24.2 H Plt Count 102 L Gran % 49.8 L Lymph % (Auto) 40.9 H [place] % (Auto) 8.9 H Eos % (Auto) 0.2 L Baso % (Auto) 0.2 Gran # 2.07 Lymph # 1.7 [place] # 0.4 Eos # 0.0 Baso # 0.01 Retic Count Sodium Potassium Chloride Carbon Dioxide Anion Gap BUN Creatinine Est GFR ( Amer) Est GFR (Non-Af Amer) Random Glucose Calcium Total Bilirubin AST ALT Alkaline Phosphatase Total Protein Albumin Globulin Albumin/Globulin Ratio Free T4 TSH 3rd Generation 33.40 H HIV 1&2 Ag/Ab, 4th Gen Nonreactive 01/27/17 01/27/17 07:30 08:00 WBC RBC Hgb Hct MCV MCH MCHC RDW Plt Count Gran % Lymph % (Auto) [place] % (Auto) Eos % (Auto) Baso % (Auto) Gran # Lymph # [place] # Eos # Baso # Retic Count 0.90 Sodium 140 Potassium 3.9 Chloride 106 Carbon Dioxide 23 Anion Gap 15 BUN 9 Creatinine 0.7 Est GFR ( Amer) > 60 Est GFR (Non-Af Amer) > 60 Random Glucose 75 Calcium 8.8 Total Bilirubin 0.6 AST 135 H ALT 134 H Alkaline Phosphatase 99 Total Protein 7.5 Albumin 3.8 Globulin 3.7 Albumin/Globulin Ratio 1.0 L Free T4 0.61 L TSH 3rd Generation HIV 1&2 Ag/Ab, 4th Gen Attending/Attestation - Attestation I have personally seen and examined this patient.: Yes I have fully participated in the care of the patient.: Yes I have reviewed all pertinent clinical information: Yes Notes (Text): Patient seen and examined with GI fellow. Agree with her note as documented above with the following additions/exceptions. This is a 46 year old female with history of hypothyroidism, HTN, and menorrhagia presenting with cough, shortness of breath, and fatigue. She has severe microcytic anemia with new onset pancytopenia. She does report heavy NSAID usage. Her history is quite variable when prompted multiple times, sometimes claiming that she had dark stools, then stating that she has not. She denies any current abdominal pain. She is vehemently declining any endoscopic evaluation. She has mild AST/ALT elevation with negative hepatitis panel. She received PRBC transfusion with improvement in hemoglobin. Avoid hepatotoxins. Autoimmune work up pending. Follow up hematology recommendations. Continue PPI therapy as patient refuses EGD. Please call with any further questions or concerns. Please notify us if patient is agreeable to endoscopic evaluation. 01/27/17 14:12
[2017-01-27 13:04] LABS: ALKALINE PHOSPHATASE 99 U/L (38-133); ALT/SGPT 134 U/L (7-56); AST/SGOT 135 U/L (15-39); BILIRUBIN,TOTAL 0.6 mg/dL (0.2-1.3); BLOOD UREA NITROGEN 9 mg/dL (7-21); CALCIUM 8.8 mg/dL (8.4-10.5); CARBON DIOXIDE 23 mmol/L (21-33); CHLORIDE 106 mmol/L (98-107); GFR AFRICAN-AMERICAN > 60; GLUCOSE,RANDOM 75 mg/dL (70-110); POTASSIUM 3.9 mmol/L (3.6-5.0); SODIUM 140 mmol/L (132-148); TOTAL PROTEIN 7.5 g/dL (5.8-8.3)
--- NOTE | 2017-01-27 13:08 | CP.PCM.PN ---
<Lara Thompson - Last Filed: 01/27/17 20:07> Subjective - Date & Time of Evaluation Date of Evaluation: 01/27/17 Time of Evaluation: 10:30 - Subjective Subjective: Hospitalist progress note for Dr. Vianca Fontanez Pt s/e at bedside this AM. NAEO. Patient states that she has a migraine this AM , describes as a throbbing sensation on the left side of her head, not associated with vision changes, neurological deficits, lightheadedness, or vertigo. Also complains of persistent cough, worsening pedal edema, nausea. Denies chest pain, SOB, vomiting, diarrhea, constipation, fevers, chills, or any other symptoms. Is very upset that she hasn't had anything to eat yet. All complaints and concerns were addressed. Objective - Vital Signs/Intake and Output Vital Signs (last 24 hours): Temp Pulse Resp BP Pulse Ox 97.7 F 77 18 142/82 95 01/27/17 11:54 01/27/17 11:54 01/27/17 11:54 01/27/17 11:54 01/27/17 06:00 Intake and Output: 01/27/17 01/27/17 06:59 18:59 Intake Total 2580 360 Balance 2580 360 - Medications Medications: Current Medications Acetaminophen (Tylenol 325mg Tab) 650 mg PO Q4 PRN PRN Reason: Fever >100.4 F Last Admin: 01/27/17 02:57 Dose: 650 mg Acetaminophen/Butalbital/Caffeine (Fioricet) 1 tab PO Q4H PRN PRN Reason: Headache Last Admin: 01/27/17 11:25 Dose: 1 tab Albuterol/Ipratropium (Duoneb 3 Mg/0.5 Mg (3 Ml) Ud) 3 ml IH Q2H PRN PRN Reason: Shortness of Breath Albuterol/Ipratropium (Duoneb 3 Mg/0.5 Mg (3 Ml) Ud) 3 ml IH [id number] [facility] Last Admin: 01/27/17 13:05 Dose: 3 ml Benzonatate (Tessalon Perles) 100 mg PO TID [facility] Last Admin: 01/27/17 09:54 Dose: 100 mg Ferrous Sulfate (Feosol Liq) 300 mg PO TID [facility] Last Admin: 01/27/17 09:53 Dose: 300 mg Guaifenesin (Robitussin) 100 mg PO Q4H PRN PRN Reason: Cough Ceftriaxone Sodium (Rocephin 1 Gram Ivpb) 100 mls @ 100 mls/hr IVPB DAILY [facility] PRN Reason: Protocol Last Admin: 01/27/17 09:54 Dose: 100 mls/hr Metoprolol Succinate (Toprol Xl) 50 mg PO DAILY [facility] Last Admin: 01/27/17 11:25 Dose: 50 mg Multivitamins/Minerals (Therapeutic-M Tab) 1 tab PO DAILY [facility] Last Admin: 01/27/17 09:54 Dose: 1 tab Pantoprazole Sodium (Protonix Inj) 40 mg IVP Q12 [facility] Last Admin: 01/27/17 09:54 Dose: 40 mg - Labs Labs: 01/27/17 07:00 01/27/17 08:00 - Constitutional Appears: Non-toxic, In Acute Distress - Head Exam Head Exam: ATRAUMATIC, NORMOCEPHALIC - Eye Exam Eye Exam: Normal appearance. absent: Conjunctival injection, Scleral icterus - ENT Exam ENT Exam: Mucous Membranes Moist, Normal Oropharynx - Respiratory Exam Respiratory Exam: Rhonchi, NORMAL BREATHING PATTERN. absent: Accessory Muscle Use, Respiratory Distress - Cardiovascular Exam Cardiovascular Exam: RRR, +S1, +S2 - GI/Abdominal Exam GI & Abdominal Exam: Distended (mild), Soft. absent: Tenderness - Extremities Exam Extremities Exam: Pedal Edema (2+ edema extending up to the knees BL). absent: Calf Tenderness, Tenderness - Back Exam Back Exam: absent: paraspinal tenderness, tenderness, vertebral tenderness - Neurological Exam Neurological Exam: Alert, Awake, CN II-XII Intact, Oriented x3 - Psychiatric Exam Psychiatric exam: Agitated, Anxious, Normal Affect - Skin Skin Exam: Dry, Intact, Normal Color, Warm Assessment and Plan - Assessment and Plan (Free Text) Assessment: 46 year old female with a PMH of HTN, hypothyroidism, and anemia who presents with complaints of cough and fatigue for 5 days. Plan: 1. Microcytic Anemia hgb: 7.8->8.1 Likely 2/2 menorrhagia and medication non-compliance vs GI ulcer or a combination Received 2U PRBCs Stool occult negative Pelvic US: endometrial hyperplasia Iron: low, TIBC: high-normal, Ferritin wnl Re-enforced compliance to patient Plan Heme-onc consult--appreciate recs GI consult--appreciate recs Patient refusing endoscopy to evaluate for GI bleed Protonix Started on ferrous sulfate and MVI Vitals q4h NC O2 2L 2. Cough and SOB CTA chest: no PE Started tessalon perles procalcitonin low Plan ECHO taken, report pending Duonebs q4h and q2h PRN Rocephin Ordered incentive spirometer to encourage deep breathing 3. Leukopenia Improved today Viral etiology vs hypothyroidism related Previous labs reviewed and last normal WBC less than a month ago on 12/28 Plan Heme/onc consult--recs appreciated Afebrile HIV negative 4. Transaminitis AST & ALT worsened Possibly due to her binge drinking on the weekends vs from heavy ibuprofen use vs fatty liver disease Hepatitis panel negative Cholesterol 129, TG's wnl Abdominal US: mild hepatosplenomegaly, fatty liver, gall bladder wall edema, no cholelithiasis Plan: f/u GI consult recs continue to trend LFT's Limit hepatotoxic medications 5. Hypothyroidism TSH high, T4 low Plan: Synthroid 100 ACB 6. Hypokalemia K wnl Mg wnl Plan: Continue to trend, re-supplement if necessary GI/DVT ppx: protonix/SCDs, no lovenox given current anemia and bleeding risk Patient was seen and examined at bedside and case was discussed at length with attending physician <Vianca Fontanez B - Last Filed: 01/29/17 12:01> Objective - Vital Signs/Intake and Output Vital Signs (last 24 hours): Temp Pulse Resp BP Pulse Ox 98.3 F 86 20 127/74 97 01/29/17 05:48 01/29/17 05:48 01/29/17 05:48 01/29/17 05:48 01/29/17 05:48 Intake and Output: 01/29/17 01/29/17 06:59 18:59 Intake Total 360 Balance 360 - Medications Medications: Current Medications Acetaminophen (Tylenol 325mg Tab) 650 mg PO Q4 PRN PRN Reason: Fever >100.4 F Last Admin: 01/27/17 02:57 Dose: 650 mg Acetaminophen/Butalbital/Caffeine (Fioricet) 1 tab PO Q4H PRN PRN Reason: Headache Last Admin: 01/27/17 11:25 Dose: 1 tab Albuterol/Ipratropium (Duoneb 3 Mg/0.5 Mg (3 Ml) Ud) 3 ml IH Q2H PRN PRN Reason: Shortness of Breath Albuterol/Ipratropium (Duoneb 3 Mg/0.5 Mg (3 Ml) Ud) 3 ml IH [id number] [facility] Last Admin: 01/29/17 10:49 Dose: 3 ml Benzonatate (Tessalon Perles) 100 mg PO TID [facility] Last Admin: 01/29/17 09:47 Dose: 100 mg Ferrous Sulfate (Feosol Liq) 300 mg PO TID [facility] Last Admin: 01/29/17 09:47 Dose: 300 mg Guaifenesin (Robitussin) 100 mg PO Q4H PRN PRN Reason: Cough Ceftriaxone Sodium (Rocephin 1 Gram Ivpb) 100 mls @ 100 mls/hr IVPB DAILY [facility] PRN Reason: Protocol Last Admin: 01/28/17 11:02 Dose: 100 mls/hr Levothyroxine Sodium (Synthroid) 100 mcg PO ACB [facility] Last Admin: 01/29/17 08:25 Dose: 100 mcg Metoprolol Succinate (Toprol Xl) 50 mg PO DAILY [facility] Last Admin: 01/27/17 11:25 Dose: 50 mg Multivitamins/Minerals (Therapeutic-M Tab) 1 tab PO DAILY [facility] Last Admin: 01/29/17 09:47 Dose: 1 tab Pantoprazole Sodium (Protonix Ec Tab) 40 mg PO Q12 [facility] Last Admin: 01/29/17 09:47 Dose: 40 mg - Labs Labs: 01/29/17 07:41 01/29/17 07:41 Attending/Attestation - Attestation I have personally seen and examined this patient.: Yes I have fully participated in the care of the patient.: Yes I have reviewed all pertinent clinical information, including history, physical exam and plan: Yes Notes (Text): I have seen and examined patient at bedside. This is 46 year old female with history of HTN, mobid obesity, hypothyroidism, anemia, tobacco use, menorrhagia , OA on chronic NSAID's and alcohol abuse who got admitted 1 day ago for evaluation of cough, fatigue and found to have leukopenia, anemia, thrombocytopenia, transaminitis, hypothyroidism and abnormal UA. She has microcytic anemia now s/p 2 units prbc. Further work up revealed iron deficiency. Will start IV iron. Will consult heme onc. Patient also has been taking OTC motrin for osteoarthritis of her knee on daily basis. Advised to stop taking nsaids. Will consult GI. Alcohol and tobacco use cessation counselling provided. She has been having menorrhagia for a long time. Pelvic ultrasound revealed endometrial hyperplasia. Recommended obgyn as an outpatient. She was started on rocephin and zithro. Procal pending. CT chest is negative. Continue duonebs. Start incentive spirometer. Advised her to get outpatient sleep study to r/o JENAE. She has transaminitis most likely due to alcohol abuse. Abdominal ultrasound revealed fatty liver and mild hepatosplenomegaly. Pancytopenia can be secondary to alcohol abuse. She has hypothyroidism. Will repeat TFT's and start synthroid. Dr Vianca Fontanez
[2017-01-27] MEDS ORDERED: Levothyroxine 75 MCG TAB PO STA (15:32)
[2017-01-27 18:43] LABS: FOLATE > 20.0 ng/mL
--- NOTE | 2017-01-27 19:11 | CON ---
DATE: 01/27/2017 ROOM: 271 HISTORY OF PRESENT ILLNESS: This is a 46-year-old female with known history of hypertension and dysl ipidemia and now admitted with generalized body weakness and severe bouts of dizziness and lightheade dness and was found to have marked anemia and leukopenia and is currently undergoing hematologic work up and management and is also being referred now for endocrine evaluation because of abnormal thyroid function studies. PAST MEDICAL HISTORY: The patient admits to having a prior history of hypothyroidism but discontinue d her thyroid medications and has had no recent medical checkup or lab testing, history of hypertensi on and dyslipidemia, currently on metoprolol given as 50 mg once daily; history of abnormal menstrual periods with recent menorrhagia in the last few months prior to admission. FAMILY HISTORY: Positive for hypertension and diabetes with both parents having the above conditions . SOCIAL HISTORY: The patient has supportive family. Admits to nicotine dependence, but apparently qu it a few weeks ago. REVIEW OF SYSTEMS: As mentioned above, admits to generalized body weakness with easy fatigability an d tiredness and suboptimal energy level. Also admits to recent fever, chills and rigors with an uppe r respiratory infection and bronchitis. Also admits to dizziness and lightheadedness, worse in the l ast few days prior to admission. Also admits to bifrontal headaches and increasing hypersomnolence a nd lethargy. No chest pains, but admits to intermittent palpitations with progressive shortness of b reath initially on exertion as noted. Her oral intake is variable with nausea, dyspepsia, and vague upper abdominal pains with occasional constipation. PHYSICAL EXAMINATION: GENERAL: This is an obese female in no apparent distress. VITAL SIGNS: Blood pressure of 140/80, pulse of 70 beats per minute and regular, temperature 98, res pirations 20. Height is 5 feet 8 inches. Weight is 329 pounds. HEENT: Head normocephalic. Eyes anicteric with pink conjunctivae. Fundoscopy not possible at this time. Ears, nose and throat otherwise normal. NECK: Supple. Thyroid gland is normal size. No carotid bruits or any cervical adenopathy. CARDIOPULMONARY: Has an adynamic precordium. S1, S2 is rapid and regular. LUNGS: Clear to auscultation. ABDOMEN: Flat, soft with positive bowel sounds. EXTREMITIES: No peripheral edema. Pulses are +2 bilaterally. LABORATORY DATA: Her free T4 is 0.61 with a TSH of 33.40. Her hemoglobin A1c is 5.8%. The chemistr y showed a BUN of 9, sodium 140, potassium 3.9, chloride 106, CO2 of 23, glucose 75, BUN, and creatin ine 0.7. She has slightly elevated liver transaminases. The WBC is 1.9, hemoglobin of 6.3, hematocr it of 23, MCV 65, platelets 130. ASSESSMENT: This is a 46-year-old female with overt hypothyroidism both historically, clinically, an d biochemically, most likely related to underlying autoimmune thyroiditis and admits to recent ____ o f the thyroid medications as noted. She also has marked leukopenia and anemia and even thrombocytope angela and is currently undergoing hematologic workup for pancytopenia at this time. There is significa nt history of menorrhagia which could also be secondary to the underlying hypothyroid condition contr ibuting to the anemia as mentioned. PLAN OF MANAGEMENT: As discussed with the patient and the staff, we will give her a stat dose of lev othyroxine at 75 mcg now as ordered. Then, tomorrow morning we will start her on levothyroxine at 10 0 mcg before meals breakfast as ordered. We will obtain serial chemistries and supplement accordingl y as needed. We will also obtain a thyroid peroxidase and thyroglobulin antibody to confirm and/or n egate the presence of underlying thyroid autoimmunity. We will follow and advise accordingly. Poppy Kline MD cc: [id number] TT: 01/27/2017 19:10:36 Confirmation # [id number] Dictation # [id number]
[2017-01-27 21:32] VITALS: RESP 20
[2017-01-27 22:29] LABS: IMMUNOGLOBULIN G 1059.1 mg/dL (700.0-1600.0)
[2017-01-27 22:30] LABS: IMMUNOGLOBULIN A 268.8 mg/dL (70.0-400.0); IMMUNOGLOBULIN M 183.8 mg/dL (40.0-230.0)
[2017-01-28] MEDS: Albuterol-Ipratrop 3 mg / 0.5 (3 ml) UD IH SCH ×4 (01:26→23:34)
[2017-01-28 05:57] LABS: TOTAL PROTEIN, SERUM 6.6 g/dL (6.1-8.1)
[2017-01-28 07:24] LABS: ADD MANUAL DIFF? NO
[2017-01-28 07:29] LABS: BASO # 0.01 K/mm3 (0.0-2.0); BASO % 0.2 % (0.0-3.0); EOS # 0.1 (0.0-0.7); EOS % 1.7 % (1.5-5.0); GRAN # 2.51 (1.4-6.5); GRAN % 53.1 % (50.0-68.0); HEMATOCRIT 31.4 % (36.0-48.0); LYMPH # 1.7 (1.2-3.4); LYMPH % 35.1 % (22.0-35.0); MEAN CELL VOLUME 69.2 fL (80.0-105.0); MEAN CORPUSCULAR HEMOGLOBIN 18.7 pg (25.0-35.0); MEAN CORPUSCULAR HGB CONC 27.1 g/dl (31.0-37.0); MONO # 0.5 (0.1-0.6); MONO % 9.9 % (1.0-6.0); PLATELET COUNT 108 10^3/uL (120.0-450.0); RED CELL DISTRIBUTION WIDTH 24.8 % (11.5-14.5); WHITE BLOOD COUNT 4.7 10^3/ul (4.5-11.0)
[2017-01-28 07:59] LABS: FREE T4 0.62 ng/dL (0.78-2.19); T4 6.9 ug/dL (5.5-11.0)
[2017-01-28 08:02] LABS: ALB/GLOB RATIO 1.1 (1.1-1.8); ALKALINE PHOSPHATASE 97 U/L (38-133); ALT/SGPT 134 U/L (7-56); AST/SGOT 112 U/L (15-39); BILIRUBIN,TOTAL 0.6 mg/dL (0.2-1.3); BLOOD UREA NITROGEN 12 mg/dL (7-21); CALCIUM 8.6 mg/dL (8.4-10.5); CARBON DIOXIDE 25 mmol/L (21-33); CHLORIDE 106 mmol/L (98-107); GFR AFRICAN-AMERICAN > 60; GLUCOSE,RANDOM 90 mg/dL (70-110); POTASSIUM 3.9 mmol/L (3.6-5.0); SODIUM 140 mmol/L (132-148); TOTAL PROTEIN 7.6 g/dL (5.8-8.3)
[2017-01-28] MEDS: Levothyroxine 100 MCG TAB PO SCH (08:14)
--- NOTE | 2017-01-28 10:41 | CON ---
DATE: 01/28/2017 INDICATIONS: Second degree heart block. This is a 46-year-old woman admitted on the with severe anemia with chief complaints of cough, fatigue and congestion. She has undergone evaluation. Yesterday on telemetry, she exhibited brief runs of Mobitz 1 second degree heart block. A cardiology consult was requested. She had been placed on metoprolol, which she had been taking sporatically prior to admission. There is no chest pain, orthopnea, PND, syncope, dizziness, vertigo, palpitations. There is no fever, chills, cough, sputum production, hemoptysis. There is no abdominal pain, nausea, vomiting, diarrhea, constipation, melena. PAST MEDICAL HISTORY: Notable for hypertension, hypothyroidism, anemia, iron deficiency, menorrhagia. She has been noncompliant to medications. She drinks regularly on weekends and she is a chronic NSAID user. Additional includes fibroid uterus, migraine headaches and she has been found to have fatty liver, leukopenia and thrombocytopenia on admission. She is a cigarette smoker. She snores and describes interrupted sleep. There is no history of rheumatic fever, myocardial infarction, angina, arrhythmia, congestive heart failure, diabetes, stroke, TIA or gout. MEDICATIONS ON ADMISSION: Metoprolol. CURRENT MEDICATIONS: Include albuterol, ferrous sulfate, Protonix, Rocephin, Synthroid, multivitamin, iron sucrose, Tylenol. ALLERGIES: There are no medication allergies. She is a smoker. She drinks on weekends. She lives at home. 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 FAMILY HISTORY: Notable for hypertension and diabetes. REVIEW OF SYSTEMS: A 10-point otherwise unremarkable except as noted above. PHYSICAL EXAMINATION: GENERAL: She is a well-developed woman, in no acute distress. VITAL SIGNS: Notable for sinus rhythm at 72 beats per minute. She is afebrile. Blood pressure 123/77, respirations 20, O2 sat 94% on room air. HEENT: Reveals no neck vein distention, thyromegaly, or carotid bruits. Mucous membranes moist. Conjunctivae pink. NECK: Supple. LUNG PRIDE: A few scattered rhonchi. HEART: Revealed distant first and second heart sounds. ABDOMEN: Benign. Bowel sounds are present. No mass, organomegaly, tenderness , rebound, or guarding. No CVA tenderness. No palpable abdominal aortic aneurysm. EXTREMITIES: Reveals no cyanosis or clubbing. There is mild pedal edema. NEUROLOGIC: Awake, alert and oriented. SKIN: Warm and dry. No rash or cellulitis. PSYCHIATRIC: Normal as to mood and affect. LABORATORY AND IMAGING: A portable chest x-ray on 01/25 revealed possible right mid to lower lobe infiltrate. EKG demonstrates regular sinus rhythm, APCs, nonspecific ST wave changes, mildly prolonged QTc. A CT scan of the chest was unremarkable. Abdominal ultrasound revealed gallbladder wall edema and thickening, no stones, mild hepatosplenomegaly, increased echotexture consistent with fatty infiltration. A pelvic ultrasound revealed endometrial hypertrophy. Initial white count 1900, repeat 4700, hemoglobin initially 6.3, today 8.5, hematocrit 23.6 initially, today 31.4, platelet count 108,000. Initial potassium 3.3, repeat 4.4. BUN, creatinine unremarkable. Blood sugars noted. Hemoglobin A1c 5.8. Iron levels are low. Liver function tests are mildly elevated. BNP is normal. Total cholesterol 129, LDL 82, triglycerides 75. Thyroid function tests are abnormal. Urinalysis was abnormal. IMPRESSION: The patient is a 46-year-old woman presenting initially with cough and congestion and severe anemia and with multiple medical problems including iron deficiency anemia, hypothyroidism, cigarette smoking, frequent alcohol use and frequent nonsteroidal anti-inflammatory drug use, who was found to have an episode of Mobitz type 1 second degree heart block on metoprolol. At this time, I will review an echocardiogram that was done yesterday. I will put her metoprolol on hold. She is undergoing hematology and endocrinology evaluation. She is starting on Synthroid. She has refused an endoscopic workup. She has been seen by GI. She is getting iron. If she requires antihypertensive therapy, I would use an agent which does not have negative inotropic affects, perhaps an D[place] or an ARB or amlodipine. She should stop smoking. She should stop drinking alcohol. She should reduce her use of NSAIDs. She will need PANTOMIMIST followup. A sleep study would be helpful. I will follow along with you. I would continue telemetry for another 24 hours. I will make additional recommendations based on her clinical course. Devonte Espinoza MD cc: [id number] TT: 01/28/2017 10:41:09 Confirmation # [id number] Dictation # [id number] MTDD
[2017-01-28] MEDS: Ferrous Sulfate 300 mg/5 mL Liq UD PO SCH ×3 (11:01→19:36)
[2017-01-28] MEDS: cefTRIAXone 1 gm 100 ML IVPB SCH (11:02)
[2017-01-28] MEDS: Pantoprazole 40 mg EC Tab PO SCH ×2 (11:02→21:16)
[2017-01-28] MEDS: Multivitamin With Minerals Tab PO SCH (11:02)
--- NOTE | 2017-01-28 11:09 | CARD ---
APPROVED REPORT EXAM: Two-dimensional and M-mode echocardiogram with Doppler and color Doppler. Other Information Quality : PoorRhythm : INDICATION Dyspnea , Severe Anemia 2D DIMENSIONS Left Atrium (2D)4.0 (1.6-4.0cm)IVSd1.4 (0.7-1.1cm) LVDd4.7 (3.9-5.9cm)PWd1.4 (0.7-1.1cm) LVDs3.3 (2.5-4.0cm)FS (%) 30.8 % LVEF (%)58.0 (>50%) M-Mode DIMENSIONS Left Atrium (MM)3.70 (2.5-4.0cm)Aortic Root3.70 (2.2-3.7cm) Aortic Cusp Exc.2.90 (1.5-2.0cm) Aortic Valve AoV Peak Afepgoib962.0cm/sAoV VTI26.2cmLVOT Peak Ogiuxbrb85.7cm/s LVOT VTI14.90cm Mitral Valve MV E Nzkuioee34.7cm/sMV A Tpoxzxzu64.6cm/sE/A ratio1.4 TDI E/Lateral E'0.0E/Medial E'0.0 Tricuspid Valve TR Peak Zxpohdsf074wc/sTR Peak Gr.26mmHg LEFT VENTRICLE The left ventricle is normal size. The left ventricular function is normal. The left ventricular ejection fraction is within the normal range. RIGHT VENTRICLE The right ventricle is not well visualized. ATRIA The left atrium size is normal. The right atrium is not well visualized. AORTIC VALVE The aortic valve is not well visualized. MITRAL VALVE The mitral valve is normal in structure. TRICUSPID VALVE The tricuspid valve is not well visualized. PULMONIC VALVE The pulmonic valve is not well visualized. GREAT VESSELS The aortic root is normal in size. PERICARDIAL EFFUSION There is no pericardial effusion. <Conclusion> Very Limited Study. The left ventricle is normal size. The left ventricular function appears normal. But the views are incomplete. The left ventricular ejection fraction is within the normal range. Based on limited views.
--- NOTE | 2017-01-28 11:37 | PN ---
DATE: 01/28/2017 ROOM 271. This is a 46-year-old female admitted with marked pancytopenia and currently undergoing hematologic w orkup at this time and is also being followed closely for metabolic management because of moderate hy pothyroidism as noted thereof. She was started on levothyroxine therapy which she is tolerating fair ly well at this time. The repeat thyroid studies showed a T4 of 6.9 mcg/dL with a free T4 of 0.62 an d a TSH of 23.00. Chemistries showed a BUN of 12, sodium 140, potassium 3.9, chloride 106, CO2 25, g lucose 90 and creatinine 0.7. We will continue the levothyroxine given at the higher dose of 100 mcg a.c. breakfast to start today as ordered. We will send out thyroid antibodies i.e., thyroid peroxid ase antibody and thyroglobulin antibody which will confirm and/or negate the presence of thyroid auto immunity. We will obtain serial chemistries and supplement accordingly as needed. We will also obta in serial thyroid studies and adjust her dose regimen accordingly to optimize metabolic control. We will follow. Poppy Kline MD cc: [id number] TT: 01/28/2017 11:36:52 Confirmation # [id number] Dictation # [id number]
--- NOTE | 2017-01-28 11:42 | CARD ---
APPROVED REPORT EKG Measurement Heart [id number] <Conclusion> Normal sinus rhythm Normal ECG now.
[2017-01-28 12:30] LABS: BETA 1 GLOBULIN 0.5 g/dL (0.4-0.6); BETA 2 GLOBULIN 0.4 g/dL (0.2-0.5); GAMMA GLOBULIN 1.2 g/dL (0.8-1.7)
--- NOTE | 2017-01-28 15:20 | CP.PCM.PN ---
<Laar Thompson - Last Filed: 01/28/17 19:43> Subjective - Date & Time of Evaluation Date of Evaluation: 01/28/17 Time of Evaluation: 07:20 - Subjective Subjective: Hospitalist progress note for Dr. Vianca Fontanez Pt s/e at bedside this AM. Patient reports symptoms are much improved. Reports some persistent but improved cough and BL lower extremity swelling, but denies chest pain, headache, fevers, SOB, nausea, vomiting, diarrhea, tolerated diet yesterday. Objective - Vital Signs/Intake and Output Vital Signs (last 24 hours): Temp Pulse Resp BP Pulse Ox 98 F 84 20 136/68 94 L 01/28/17 11:57 01/28/17 11:57 01/28/17 11:57 01/28/17 11:57 01/28/17 05:26 Intake and Output: 01/28/17 01/28/17 06:59 18:59 Intake Total 360 Balance 360 - Medications Medications: Current Medications Acetaminophen (Tylenol 325mg Tab) 650 mg PO Q4 PRN PRN Reason: Fever >100.4 F Last Admin: 01/27/17 02:57 Dose: 650 mg Acetaminophen/Butalbital/Caffeine (Fioricet) 1 tab PO Q4H PRN PRN Reason: Headache Last Admin: 01/27/17 11:25 Dose: 1 tab Albuterol/Ipratropium (Duoneb 3 Mg/0.5 Mg (3 Ml) Ud) 3 ml IH Q2H PRN PRN Reason: Shortness of Breath Albuterol/Ipratropium (Duoneb 3 Mg/0.5 Mg (3 Ml) Ud) 3 ml IH [id number] [facility] Last Admin: 01/28/17 08:11 Dose: 3 ml Benzonatate (Tessalon Perles) 100 mg PO TID [facility] Last Admin: 01/28/17 11:01 Dose: 100 mg Ferrous Sulfate (Feosol Liq) 300 mg PO TID [facility] Last Admin: 01/28/17 11:01 Dose: 300 mg Guaifenesin (Robitussin) 100 mg PO Q4H PRN PRN Reason: Cough Ceftriaxone Sodium (Rocephin 1 Gram Ivpb) 100 mls @ 100 mls/hr IVPB DAILY [facility] PRN Reason: Protocol Last Admin: 01/28/17 11:02 Dose: 100 mls/hr Levothyroxine Sodium (Synthroid) 100 mcg PO ACB [facility] Last Admin: 01/28/17 08:14 Dose: 100 mcg Metoprolol Succinate (Toprol Xl) 50 mg PO DAILY [facility] Last Admin: 01/27/17 11:25 Dose: 50 mg Multivitamins/Minerals (Therapeutic-M Tab) 1 tab PO DAILY [facility] Last Admin: 01/28/17 11:02 Dose: 1 tab Pantoprazole Sodium (Protonix Ec Tab) 40 mg PO Q12 [facility] Last Admin: 01/28/17 11:02 Dose: 40 mg - Labs Labs: 01/28/17 05:30 01/28/17 05:30 - Constitutional Appears: Well, Non-toxic, Younger Than Stated Age - Head Exam Head Exam: ATRAUMATIC, NORMOCEPHALIC - Eye Exam Eye Exam: Normal appearance. absent: Conjunctival injection, Scleral icterus - ENT Exam ENT Exam: Mucous Membranes Moist, Normal Oropharynx - Respiratory Exam Respiratory Exam: Wheezes, NORMAL BREATHING PATTERN. absent: Accessory Muscle Use, Decreased Breath Sounds - Cardiovascular Exam Cardiovascular Exam: RRR, +S1, +S2. absent: Murmur - GI/Abdominal Exam GI & Abdominal Exam: Soft. absent: Distended, Tenderness - Extremities Exam Extremities Exam: Pedal Edema (2+ non-pitting edema up to the mid calf improved since yesterday). absent: Calf Tenderness, Tenderness - Back Exam Back Exam: NORMAL INSPECTION. absent: CVA tenderness (L), CVA tenderness (R) - Neurological Exam Neurological Exam: Alert, Awake, Oriented x3 - Psychiatric Exam Psychiatric exam: Normal Affect, Normal Mood - Skin Skin Exam: Dry, Intact, Normal Color, Warm Assessment and Plan - Assessment and Plan (Free Text) Assessment: 46 year old female with a PMH of HTN, hypothyroidism, and anemia who presents with complaints of cough and fatigue for 5 days. Plan: 1. Microcytic Anemia hgb: 7.8->8.1->8.5 Likely 2/2 menorrhagia and medication non-compliance vs GI ulcer or a combination Received 2U PRBCs Stool occult negative Pelvic US: endometrial hyperplasia Iron: low, TIBC: high-normal, Ferritin wnl Re-enforced compliance to patient Plan Heme-onc consult--appreciate recs GI consult--appreciate recs Patient refusing endoscopy to evaluate for GI bleed Protonix Started on ferrous sulfate and MVI 2. Cough and SOB CTA chest: no PE Started tessalon perles procalcitonin low Improved ECHO: view incomplete, but LVEF 58% Plan Duonebs q4h and q2h PRN Rocephin incentive spirometer 3. HTN Currently normotensive on regimen Overnight patient had temporary bradycardia of 30BPM, mobitz type 1 block. Cardiology advised holding metoprolol and holding for overnight cardiac monitoring Plan: Hold metoprolol monitor heart over night f/u BP, bradycardia 3. Leukopenia WBC wnl today Viral etiology vs hypothyroidism related Previous labs reviewed and last normal WBC less than a month ago on 12/28 Plan Heme/onc consult--recs appreciated Afebrile HIV negative 4. Transaminitis AST improved & ALT stable Possibly due to her binge drinking on the weekends vs from heavy ibuprofen use vs fatty liver disease Hepatitis panel negative Cholesterol 129, TG's wnl Abdominal US: mild hepatosplenomegaly, fatty liver, gall bladder wall edema, no cholelithiasis Plan: f/u GI consult recs continue to trend LFT's Limit hepatotoxic medications Counselled to stop drinking 5. Hypothyroidism TSH high x2, Free T4 low Plan: Synthroid 100 ACB Endocrinology--Dr. Kline--Consulted, appreciate recs 6. Hypokalemia K wnl Mg wnl Plan: Continue to trend, re-supplement if necessary GI/DVT ppx: protonix/SCDs, no lovenox given current anemia and bleeding risk Dispo: Keep for one more night to monitor for further bradyrhythmia, probable D/ C in AM. Patient was seen and examined at bedside and case was discussed at length with attending physician <Vianca Fontanez - Last Filed: 01/29/17 12:10> Objective - Vital Signs/Intake and Output Vital Signs (last 24 hours): Temp Pulse Resp BP Pulse Ox 98.3 F 86 20 127/74 97 01/29/17 05:48 01/29/17 05:48 01/29/17 05:48 01/29/17 05:48 01/29/17 05:48 Intake and Output: 01/29/17 01/29/17 06:59 18:59 Intake Total 360 Balance 360 - Medications Medications: Current Medications Acetaminophen (Tylenol 325mg Tab) 650 mg PO Q4 PRN PRN Reason: Fever >100.4 F Last Admin: 01/27/17 02:57 Dose: 650 mg Acetaminophen/Butalbital/Caffeine (Fioricet) 1 tab PO Q4H PRN PRN Reason: Headache Last Admin: 01/27/17 11:25 Dose: 1 tab Albuterol/Ipratropium (Duoneb 3 Mg/0.5 Mg (3 Ml) Ud) 3 ml IH Q2H PRN PRN Reason: Shortness of Breath Albuterol/Ipratropium (Duoneb 3 Mg/0.5 Mg (3 Ml) Ud) 3 ml IH [id number] [facility] Last Admin: 01/29/17 10:49 Dose: 3 ml Benzonatate (Tessalon Perles) 100 mg PO TID [facility] Last Admin: 01/29/17 09:47 Dose: 100 mg Ferrous Sulfate (Feosol Liq) 300 mg PO TID [facility] Last Admin: 01/29/17 09:47 Dose: 300 mg Guaifenesin (Robitussin) 100 mg PO Q4H PRN PRN Reason: Cough Ceftriaxone Sodium (Rocephin 1 Gram Ivpb) 100 mls @ 100 mls/hr IVPB DAILY [facility] PRN Reason: Protocol Last Admin: 01/28/17 11:02 Dose: 100 mls/hr Levothyroxine Sodium (Synthroid) 100 mcg PO ACB [facility] Last Admin: 01/29/17 08:25 Dose: 100 mcg Metoprolol Succinate (Toprol Xl) 50 mg PO DAILY [facility] Last Admin: 01/27/17 11:25 Dose: 50 mg Multivitamins/Minerals (Therapeutic-M Tab) 1 tab PO DAILY [facility] Last Admin: 01/29/17 09:47 Dose: 1 tab Pantoprazole Sodium (Protonix Ec Tab) 40 mg PO Q12 [facility] Last Admin: 01/29/17 09:47 Dose: 40 mg - Labs Labs: 01/29/17 07:41 01/29/17 07:41 Attending/Attestation - Attestation I have personally seen and examined this patient.: Yes I have fully participated in the care of the patient.: Yes I have reviewed all pertinent clinical information, including history, physical exam and plan: Yes Notes (Text): I have seen and examined patient at bedside. This is 46 year old female with history of HTN, mobid obesity, hypothyroidism, anemia, tobacco use, menorrhagia , OA on chronic NSAID's and alcohol abuse who got admitted 2 days ago for evaluation of cough, fatigue and found to have leukopenia, anemia, thrombocytopenia, transaminitis, hypothyroidism and UTI. She has microcytic anemia now s/p 2 units prbc. Further work up revealed iron deficiency. She has been getting IV iron. Outpatient IV iron arranged by heme onc. Patient also has been taking OTC motrin for osteoarthritis of her knee on daily basis. Advised to stop taking nsaids. GI consult appreciated. Patient refused endoscopy. Alcohol and tobacco use cessation counselling provided. She has been having menorrhagia for a long time. Pelvic ultrasound revealed endometrial hyperplasia. Recommended obgyn as an outpatient. Patient was started on rocephin for UTI. Procal is low. CT chest is negative. Continue duonebs and incentive spirometer. Advised her to get outpatient sleep study to r/o JENAE. She has transaminitis most likely due to alcohol abuse. Abdominal ultrasound revealed fatty liver and mild hepatosplenomegaly. Pancytopenia can be secondary to alcohol abuse. She has hypothyroidism. Continue synthroid. Patient also developed sinus bradycardia, mobitz type 1 av block and on telemetry strip sinus pause was noted. Discussed with bronzer who recommended to stop metoprolol and tele monitoring for another [address] Vianca Fontanez
[2017-01-29] MEDS: Albuterol-Ipratrop 3 mg / 0.5 (3 ml) UD IH SCH ×3 (03:32→10:49)
[2017-01-29 05:49] VITALS: BP 127/74; TEMP 98.3; O2SAT 97
[2017-01-29 08:00] LABS: BASO # 0.02 K/mm3 (0.0-2.0); BASO % 0.5 % (0.0-3.0); EOS # 0.2 (0.0-0.7); EOS % 5.5 % (1.5-5.0); GRAN # 2.36 (1.4-6.5); GRAN % 53.6 % (50.0-68.0); HEMATOCRIT 31.1 % (36.0-48.0); LYMPH # 1.4 (1.2-3.4); LYMPH % 31.8 % (22.0-35.0); MEAN CELL VOLUME 69.4 fL (80.0-105.0); MEAN CORPUSCULAR HEMOGLOBIN 18.8 pg (25.0-35.0); MONO # 0.4 (0.1-0.6); MONO % 8.6 % (1.0-6.0); PLATELET COUNT 113 10^3/uL (120.0-450.0); RED CELL DISTRIBUTION WIDTH 25.3 % (11.5-14.5); WHITE BLOOD COUNT 4.4 10^3/ul (4.5-11.0)
[2017-01-29 08:03] LABS: ADD MANUAL DIFF? NO
[2017-01-29 08:17] LABS: ALKALINE PHOSPHATASE 99 U/L (38-133); ALT/SGPT 111 U/L (7-56); AST/SGOT 94 U/L (15-39); BILIRUBIN,TOTAL 0.5 mg/dL (0.2-1.3); BLOOD UREA NITROGEN 10 mg/dL (7-21); CALCIUM 8.8 mg/dL (8.4-10.5); CARBON DIOXIDE 25 mmol/L (21-33); CHLORIDE 106 mmol/L (95-110); GFR AFRICAN-AMERICAN > 60; GLUCOSE,RANDOM 89 mg/dL (70-110); POTASSIUM 4.1 mmol/L (3.6-5.0); SODIUM 142 mmol/L (132-148); TOTAL PROTEIN 7.3 g/dL (5.8-8.3)
[2017-01-29] MEDS: Levothyroxine 100 MCG TAB PO SCH (08:25)
--- NOTE | 2017-01-29 09:29 | CP.PCM.PN ---
Subjective - Date & Time of Evaluation Date of Evaluation: 01/29/17 Time of Evaluation: 08:00 - Subjective Subjective: Stable on 2R. Still having episodes of Mobitz 1 2nd degree AVB with 2 - 3 sec pauses with non-conducted P waves. She and her daughter report snoring and disturbed sleep pattern chronically. V/S noted. RSR now. PE: Lungs: clear Cor.: S1S2 Abd: soft Ext.: no edema Neuro.: alert ECG 01/28: RSR Echo; Limited study. Probably NL LV but only limited views. Objective - Vital Signs/Intake and Output Vital Signs (last 24 hours): Temp Pulse Resp BP Pulse Ox 98.3 F 86 20 127/74 97 01/29/17 05:48 01/29/17 05:48 01/29/17 05:48 01/29/17 05:48 01/29/17 05:48 Intake and Output: 01/29/17 01/29/17 06:59 18:59 Intake Total 360 Balance 360 - Medications Medications: Current Medications Acetaminophen (Tylenol 325mg Tab) 650 mg PO Q4 PRN PRN Reason: Fever >100.4 F Last Admin: 01/27/17 02:57 Dose: 650 mg Acetaminophen/Butalbital/Caffeine (Fioricet) 1 tab PO Q4H PRN PRN Reason: Headache Last Admin: 01/27/17 11:25 Dose: 1 tab Albuterol/Ipratropium (Duoneb 3 Mg/0.5 Mg (3 Ml) Ud) 3 ml IH Q2H PRN PRN Reason: Shortness of Breath Albuterol/Ipratropium (Duoneb 3 Mg/0.5 Mg (3 Ml) Ud) 3 ml IH [id number] [facility] Last Admin: 01/29/17 08:03 Dose: 3 ml Benzonatate (Tessalon Perles) 100 mg PO TID [facility] Last Admin: 01/28/17 19:36 Dose: 100 mg Ferrous Sulfate (Feosol Liq) 300 mg PO TID [facility] Last Admin: 01/28/17 19:36 Dose: 300 mg Guaifenesin (Robitussin) 100 mg PO Q4H PRN PRN Reason: Cough Ceftriaxone Sodium (Rocephin 1 Gram Ivpb) 100 mls @ 100 mls/hr IVPB DAILY [facility] PRN Reason: Protocol Last Admin: 01/28/17 11:02 Dose: 100 mls/hr Levothyroxine Sodium (Synthroid) 100 mcg PO ACB [facility] Last Admin: 01/29/17 08:25 Dose: 100 mcg Metoprolol Succinate (Toprol Xl) 50 mg PO DAILY [facility] Last Admin: 01/27/17 11:25 Dose: 50 mg Multivitamins/Minerals (Therapeutic-M Tab) 1 tab PO DAILY [facility] Last Admin: 01/28/17 11:02 Dose: 1 tab Pantoprazole Sodium (Protonix Ec Tab) 40 mg PO Q12 [facility] Last Admin: 01/28/17 21:16 Dose: 40 mg - Labs Labs: 01/29/17 07:41 01/29/17 07:41 Assessment and Plan - Assessment and Plan (Free Text) Plan: Assessment: Cough/Congestion/Fatigue Severe anemia with Fe deficiency 2nd degree AVB possible related to JENAE UTI HBP Smoker Hypothyroidism ETOH Fatty Liver Migraine LING Fibroid Uterus Medical Non-Compliance and Refusing GI testing Plan: D/C metoprolol and no neg. inotropic meds Sleep Evaluation. BiPap may help with noctunal brayarrhythmias. She needs many Life Style changes (dietary, weight loss, reg. physical activity , tobacco and ETOH cessation, etc) and to be compliant with meds and medical f/ u. As per Endo., GI, [employer]., Heme and medical team. If symptomatic bradyarrhythmia would consider EP evaluation and PPM.
[2017-01-29] MEDS: Ferrous Sulfate 300 mg/5 mL Liq UD PO SCH (09:47)
[2017-01-29] MEDS: Multivitamin With Minerals Tab PO SCH (09:47)
[2017-01-29] MEDS: Pantoprazole 40 mg EC Tab PO SCH (09:47)
[2017-01-29] MEDS: cefTRIAXone 1 gm 100 ML IVPB SCH (10:00)
[2017-01-29 12:20] VITALS: PULSE 88
--- NOTE | 2017-01-29 13:36 | CP.PCM.DIS ---
<Isha Cedillo - Last Filed: 01/29/17 13:36> Provider - Provider Date of Admission: 01/25/17 18:34 Attending physician: Vianca Fontanez MD Primary care physician: Arsen Beyer MD Consults: GI: Nikolas Heme: Mia Cardio: Elkind Time Spent in preparation of Discharge (in minutes): 41 Hospital Course - Lab Results Lab Results: Most Recent Lab Values WBC 4.4 10^3/ul (4.5-11.0) L 01/29/17 07:41 RBC 4.48 10^6/uL (3.5-6.1) 01/29/17 07:41 Hgb 8.4 gm/dL (12.0-16.0) L 01/29/17 07:41 Hct 31.1 % (36.0-48.0) L 01/29/17 07:41 MCV 69.4 fL (80.0-105.0) L 01/29/17 07:41 MCH 18.8 pg (25.0-35.0) L 01/29/17 07:41 MCHC 27.0 g/dl (31.0-37.0) L 01/29/17 07:41 RDW 25.3 % (11.5-14.5) H 01/29/17 07:41 Plt Count 113 10^3/uL (120.0-450.0) L 01/29/17 07:41 Gran % 53.6 % (50.0-68.0) 01/29/17 07:41 Lymph % (Auto) 31.8 % (22.0-35.0) 01/29/17 07:41 Piatt % (Auto) 8.6 % (1.0-6.0) H 01/29/17 07:41 Eos % (Auto) 5.5 % (1.5-5.0) H 01/29/17 07:41 Baso % (Auto) 0.5 % (0.0-3.0) 01/29/17 07:41 Gran # 2.36 (1.4-6.5) 01/29/17 07:41 Lymph # 1.4 (1.2-3.4) 01/29/17 07:41 Piatt # 0.4 (0.1-0.6) 01/29/17 07:41 Eos # 0.2 (0.0-0.7) 01/29/17 07:41 Baso # 0.02 K/mm3 (0.0-2.0) 01/29/17 07:41 Retic Count 0.90 % (0.5-1.5) 01/27/17 08:00 Sodium 142 mmol/L (132-148) 01/29/17 07:41 Potassium 4.1 mmol/L (3.6-5.0) 01/29/17 07:41 Chloride 106 mmol/L (95-110) 01/29/17 07:41 Carbon Dioxide 25 mmol/L (21-33) 01/29/17 07:41 Anion Gap 15 (10-20) 01/29/17 07:41 BUN 10 mg/dL (7-21) 01/29/17 07:41 Creatinine 0.7 mg/dL (0.5-1.4) 01/29/17 07:41 Est GFR ( Amer) > 60 01/29/17 07:41 Est GFR (Non-Af Amer) > 60 01/29/17 07:41 Random Glucose 89 mg/dL (70-110) 01/29/17 07:41 Hemoglobin A1c 5.8 % (4.2-6.5) 01/26/17 06:45 Calcium 8.8 mg/dL (8.4-10.5) 01/29/17 07:41 Magnesium 1.9 mg/dL (1.7-2.2) 01/26/17 06:45 Iron 16 ug/dL (45-180) L 01/25/17 16:15 TIBC 446 ug/dL (265-497) 01/25/17 16:15 % Saturation 4 % (20-55) L 01/25/17 16:15 Ferritin 12.8 ng/mL 01/25/17 16:15 Total Bilirubin 0.5 mg/dL (0.2-1.3) 01/29/17 07:41 AST 94 U/L (15-39) H 01/29/17 07:41 ALT 111 U/L (7-56) H 01/29/17 07:41 Alkaline Phosphatase 99 U/L (38-133) 01/29/17 07:41 NT-Pro-B Natriuret Pep 90.4 pg/mL (0-450) 01/25/17 16:15 Total Protein 7.3 g/dL (5.8-8.3) 01/29/17 07:41 Total Protein (PEP) 6.6 g/dL (6.1-8.1) 01/27/17 13:45 Albumin 3.7 g/dL (3.0-4.8) 01/29/17 07:41 Albumin (PEP) 3.5 g/dL (3.8-4.8) L 01/27/17 13:45 Globulin 3.6 gm/dL 01/29/17 07:41 Albumin/Globulin Ratio 1.0 (1.1-1.8) L 01/29/17 07:41 Zzmkz-2-Iykrvfzwa 0.3 g/dL (0.2-0.3) 01/27/17 13:45 Chvzc-4-Uxyyplzxy 0.6 g/dL (0.5-0.9) 01/27/17 13:45 Vvce-1-Hetjxdmt 0.5 g/dL (0.4-0.6) 01/27/17 13:45 Hozy-0-Hrcyfjvq 0.4 g/dL (0.2-0.5) 01/27/17 13:45 Gamma Globulins 1.2 g/dL (0.8-1.7) 01/27/17 13:45 Abnorm Protein Band 1 TEST NOT PERFORMED 01/27/17 13:45 Abnorm Protein Band 2 TEST NOT PERFORMED 01/27/17 13:45 Abnorm Protein Band 3 TEST NOT PERFORMED 01/27/17 13:45 Triglycerides 75 mg/dL (35-160) 01/26/17 06:45 Cholesterol 129 mg/dL (130-200) L 01/26/17 06:45 LDL Cholesterol Direct 82 mg/dL (0-129) 01/26/17 06:45 HDL Cholesterol 27 mg/dL (29-60) L 01/26/17 06:45 Vitamin B12 969 pg/mL (239-931) H 01/27/17 08:00 Folate > 20.0 ng/mL 01/27/17 08:00 Procalcitonin < 0.05 NG/ML (0.19-0.49) L 01/26/17 06:54 Free T4 0.62 ng/dL (0.78-2.19) L 01/28/17 05:30 Thyroxine (T4) 6.9 ug/dL (5.5-11.0) 01/28/17 05:30 TSH 3rd Generation 23.00 mIU/mL (0.46-4.68) H 01/28/17 05:30 Urine Color Yellow (YELLOW) 01/25/17 16:15 Urine Appearance Sl cloudy (CLEAR) 01/25/17 16:15 Urine pH 6.0 (4.7-8.0) 01/25/17 16:15 Ur Specific [place] 1.025 (1.005-1.035) 01/25/17 16:15 Urine Protein Trace mg/dL (<30 mg/dL) H 01/25/17 16:15 Urine Glucose (UA) Negative mg/dL (NEGATIVE) 01/25/17 16:15 Urine Ketones Negative mg/dL (NEGATIVE) 01/25/17 16:15 Urine Blood Negative (NEGATIVE) 01/25/17 16:15 Urine Nitrate Positive (NEGATIVE) H 01/25/17 16:15 Urine Bilirubin Negative (NEGATIVE) 01/25/17 16:15 Urine Urobilinogen 0.2 E.U./dL (<1 E.U./dL) 01/25/17 16:15 Ur Leukocyte Esterase Negative Mandie/uL (NEGATIVE) 01/25/17 16:15 Urine RBC Negative /hpf (0-2) 01/25/17 16:15 Urine WBC 0 - 2 /hpf (0-6) 01/25/17 16:15 Ur Epithelial Cells 0 - 2 /hpf (0-5) 01/25/17 16:15 Urine Bacteria Many (NEG) 01/25/17 16:15 IgG 1059.1 mg/dL (700.0-1600.0) 01/27/17 13:45 IgA 268.8 mg/dL (70.0-400.0) 01/27/17 13:45 IgM 183.8 mg/dL (40.0-230.0) 01/27/17 13:45 BHUPENDRA & SPEP Interp See note (()) 01/27/17 13:45 CHARLEEN Screen Negative (Negative) 01/27/17 13:45 CHARLEEN Titer TEST NOT PERFORMED 01/27/17 13:45 CHARLEEN Titer 2 TEST NOT PERFORMED 01/27/17 13:45 CHARLEEN Pattern TEST NOT PERFORMED 01/27/17 13:45 CHARLEEN Pattern 2 TEST NOT PERFORMED 01/27/17 13:45 Anti-Smooth Muscle Ab Negative (Negative) 01/27/17 13:45 Hepatitis A IgM Ab Negative (NEGATIVE) 01/26/17 06:45 Hep Bs Antigen Negative (NEGATIVE) 01/26/17 06:45 Hep B Core IgM Ab Negative (NEGATIVE) 01/26/17 06:45 Hepatitis C Antibody Negative (NEGATIVE) 01/26/17 06:45 HIV-1 Ab Rapid Screen Non reactive (NON REAC) 01/26/17 06:45 HIV 1&2 Ag/Ab, 4th Gen Nonreactive (Nonreactive) 01/26/17 06:45 Influenza Typ A,B (EIA) Negative for flu a/b (NEGATIVE) 01/25/17 16:15 Blood Type B POSITIVE 01/25/17 18:22 Blood Type Confirm B POSITIVE 01/25/17 18:50 Antibody Screen Negative 01/25/17 18:22 Crossmatch See Detail 01/25/17 18:22 BBK History Checked No verified bt 01/25/17 18:22 - Hospital Course Hospital Course: 46 year old female with history of HTN, mobid obesity, hypothyroidism, anemia, tobacco use, menorrhagia, OA on chronic NSAID's and alcohol abuse who got admitted 3 days ago for evaluation of cough, fatigue and found to have leukopenia, anemia, thrombocytopenia, transaminitis, hypothyroidism and UTI. She has microcytic anemia now s/p 2 units prbc. Further work up revealed iron deficiency. She has been getting IV iron. Outpatient IV iron arranged by heme onc. Patient also has been taking OTC motrin for osteoarthritis of her knee on daily basis. Advised to stop taking nsaids. GI consult appreciated. Patient refused endoscopy. Alcohol and tobacco use cessation counselling provided. She has been having menorrhagia for a long time. Pelvic ultrasound revealed endometrial hyperplasia. Recommended obgyn as an outpatient. Patient was started on rocephin for UTI. Procal is low. CT chest is negative. Received duonebs and incentive spirometer as treatment. Advised her to get outpatient sleep study to r/o JENAE. She has transaminitis most likely due to alcohol abuse. Abdominal ultrasound revealed fatty liver and mild hepatosplenomegaly. Pancytopenia can be secondary to alcohol abuse. She has hypothyroidism. Treated with synthroid. Patient also developed sinus bradycardia, mobitz type 1 av block and on telemetry strip sinus pause was noted. Discussed with sql report developer who recommended to stop metoprolol and tele monitoring for another 24 hours. Pt refused further care and refused further stay for the mobitz type 1 av block, for EP eval and possible PPM placement, despite being counseled that without the monitoring and interventions possible during her hospital stay, that this could lead to fainting, cardiac shock and possibly . Patient indicated understanding of these possible consequences while signing AMA. AMA in guarded condition. Discharge Exam - Head Exam Head Exam: ATRAUMATIC, NORMOCEPHALIC - Additional Findings Additional findings: see previous progress note. pt refused care Discharge Plan - Discharge Medications Prescriptions: Sulfamethoxazole/Trimethoprim [Bactrim DS Tab] 1 tab PO BID #6 tab Ferrous Sulfate [Ferosul] 325 mg PO TID 30 Days Pantoprazole [Protonix EC Tab] 40 mg PO Q12 #60 ect Levothyroxine [Synthroid] 100 mcg PO ACB 30 Days Albuterol HFA [Ventolin HFA 90 mcg/actuation (8 g)] 1 puff IH Q6 30 Days - Follow Up Plan Condition: GUARDED Disposition: AGAINST MEDICAL ADVICE Instructions: How to Stop Smoking (DC), How to Stop Smoking (GEN), Peptic Ulcer (DC), Heart Healthy Diet (DC), Heart Healthy Diet (GEN), Hypokalemia (DC) , Hypokalemia (GEN), Hypothyroidism (DC), Iron Deficiency Anemia (DC), Anemia ( DC), Chest Pain (DC), Chest Pain (GEN) Additional Instructions: 1. Follow up with your primary physician for both follow-up for this hospital stay and for EP study for possible PPM (pacemaker), for which an slag skimmer would be needed. 2. Follow up with Dr. Weaver for IV iron supplementation 3. Follow up with Dr. Connor for further evaluation of your bleeding and possibility of gastric ulcers 4. Follow up with a tour actor for endometrial hyperplasia 5. Follow up with Dr. Kline for work up of your hypothyroidism 6. You should stop drinking and stop smoking. Both are very detrimental to your blood count, lungs, as well as many other things 7. Take all prescription as directed at discharge--do not skip doses or stop taking medications without talking to your physician 8. Wear compression stockings and keep feet elevated when sitting for edema 9. Stay active--walk often 10. Call your physician or return to the ED for return or worsening of your symptoms Patient is leaving AMA Referrals: Poppy Kline MD [Medical Doctor] - Devonte Espinoza MD [Staff Provider] - Jason Weaver MD [Staff Provider] - Arsne Beyer MD [Primary Care Provider] - Tl Connor MD [Staff Provider] - <Vianca Fontanez - Last Filed: 01/29/17 15:28> Provider - Provider Date of Admission: 01/25/17 18:34 Attending physician: Vianca Fontanez MD Primary care physician: Arsen Beyer MD Hospital Course - Lab Results Lab Results: Most Recent Lab Values WBC 4.4 10^3/ul (4.5-11.0) L 01/29/17 07:41 RBC 4.48 10^6/uL (3.5-6.1) 01/29/17 07:41 Hgb 8.4 gm/dL (12.0-16.0) L 01/29/17 07:41 Hct 31.1 % (36.0-48.0) L 01/29/17 07:41 MCV 69.4 fL (80.0-105.0) L 01/29/17 07:41 MCH 18.8 pg (25.0-35.0) L 01/29/17 07:41 MCHC 27.0 g/dl (31.0-37.0) L 01/29/17 07:41 RDW 25.3 % (11.5-14.5) H 01/29/17 07:41 Plt Count 113 10^3/uL (120.0-450.0) L 01/29/17 07:41 Gran % 53.6 % (50.0-68.0) 01/29/17 07:41 Lymph % (Auto) 31.8 % (22.0-35.0) 01/29/17 07:41 Piatt % (Auto) 8.6 % (1.0-6.0) H 01/29/17 07:41 Eos % (Auto) 5.5 % (1.5-5.0) H 01/29/17 07:41 Baso % (Auto) 0.5 % (0.0-3.0) 01/29/17 07:41 Gran # 2.36 (1.4-6.5) 01/29/17 07:41 Lymph # 1.4 (1.2-3.4) 01/29/17 07:41 Piatt # 0.4 (0.1-0.6) 01/29/17 07:41 Eos # 0.2 (0.0-0.7) 01/29/17 07:41 Baso # 0.02 K/mm3 (0.0-2.0) 01/29/17 07:41 Retic Count 0.90 % (0.5-1.5) 01/27/17 08:00 Sodium 142 mmol/L (132-148) 01/29/17 07:41 Potassium 4.1 mmol/L (3.6-5.0) 01/29/17 07:41 Chloride 106 mmol/L (95-110) 01/29/17 07:41 Carbon Dioxide 25 mmol/L (21-33) 01/29/17 07:41 Anion Gap 15 (10-20) 01/29/17 07:41 BUN 10 mg/dL (7-21) 01/29/17 07:41 Creatinine 0.7 mg/dL (0.5-1.4) 01/29/17 07:41 Est GFR ( Amer) > 60 01/29/17 07:41 Est GFR (Non-Af Amer) > 60 01/29/17 07:41 Random Glucose 89 mg/dL (70-110) 01/29/17 07:41 Hemoglobin A1c 5.8 % (4.2-6.5) 01/26/17 06:45 Calcium 8.8 mg/dL (8.4-10.5) 01/29/17 07:41 Magnesium 1.9 mg/dL (1.7-2.2) 01/26/17 06:45 Iron 16 ug/dL (45-180) L 01/25/17 16:15 TIBC 446 ug/dL (265-497) 01/25/17 16:15 % Saturation 4 % (20-55) L 01/25/17 16:15 Ferritin 12.8 ng/mL 01/25/17 16:15 Total Bilirubin 0.5 mg/dL (0.2-1.3) 01/29/17 07:41 AST 94 U/L (15-39) H 01/29/17 07:41 ALT 111 U/L (7-56) H 01/29/17 07:41 Alkaline Phosphatase 99 U/L (38-133) 01/29/17 07:41 NT-Pro-B Natriuret Pep 90.4 pg/mL (0-450) 01/25/17 16:15 Total Protein 7.3 g/dL (5.8-8.3) 01/29/17 07:41 Total Protein (PEP) 6.6 g/dL (6.1-8.1) 01/27/17 13:45 Albumin 3.7 g/dL (3.0-4.8) 01/29/17 07:41 Albumin (PEP) 3.5 g/dL (3.8-4.8) L 01/27/17 13:45 Globulin 3.6 gm/dL 01/29/17 07:41 Albumin/Globulin Ratio 1.0 (1.1-1.8) L 01/29/17 07:41 Lgbnc-3-Sxhexapuz 0.3 g/dL (0.2-0.3) 01/27/17 13:45 Gzvgg-1-Cniobdmie 0.6 g/dL (0.5-0.9) 01/27/17 13:45 Cmgz-1-Xmtvyviv 0.5 g/dL (0.4-0.6) 01/27/17 13:45 Dldb-2-Ggiiyuqm 0.4 g/dL (0.2-0.5) 01/27/17 13:45 Gamma Globulins 1.2 g/dL (0.8-1.7) 01/27/17 13:45 Abnorm Protein Band 1 TEST NOT PERFORMED 01/27/17 13:45 Abnorm Protein Band 2 TEST NOT PERFORMED 01/27/17 13:45 Abnorm Protein Band 3 TEST NOT PERFORMED 01/27/17 13:45 Triglycerides 75 mg/dL (35-160) 01/26/17 06:45 Cholesterol 129 mg/dL (130-200) L 01/26/17 06:45 LDL Cholesterol Direct 82 mg/dL (0-129) 01/26/17 06:45 HDL Cholesterol 27 mg/dL (29-60) L 01/26/17 06:45 Vitamin B12 969 pg/mL (239-931) H 01/27/17 08:00 Folate > 20.0 ng/mL 01/27/17 08:00 Procalcitonin < 0.05 NG/ML (0.19-0.49) L 01/26/17 06:54 Free T4 0.62 ng/dL (0.78-2.19) L 01/28/17 05:30 Thyroxine (T4) 6.9 ug/dL (5.5-11.0) 01/28/17 05:30 TSH 3rd Generation 23.00 mIU/mL (0.46-4.68) H 01/28/17 05:30 Urine Color Yellow (YELLOW) 01/25/17 16:15 Urine Appearance Sl cloudy (CLEAR) 01/25/17 16:15 Urine pH 6.0 (4.7-8.0) 01/25/17 16:15 Ur Specific [place] 1.025 (1.005-1.035) 01/25/17 16:15 Urine Protein Trace mg/dL (<30 mg/dL) H 01/25/17 16:15 Urine Glucose (UA) Negative mg/dL (NEGATIVE) 01/25/17 16:15 Urine Ketones Negative mg/dL (NEGATIVE) 01/25/17 16:15 Urine Blood Negative (NEGATIVE) 01/25/17 16:15 Urine Nitrate Positive (NEGATIVE) H 01/25/17 16:15 Urine Bilirubin Negative (NEGATIVE) 01/25/17 16:15 Urine Urobilinogen 0.2 E.U./dL (<1 E.U./dL) 01/25/17 16:15 Ur Leukocyte Esterase Negative Mandie/uL (NEGATIVE) 01/25/17 16:15 Urine RBC Negative /hpf (0-2) 01/25/17 16:15 Urine WBC 0 - 2 /hpf (0-6) 01/25/17 16:15 Ur Epithelial Cells 0 - 2 /hpf (0-5) 01/25/17 16:15 Urine Bacteria Many (NEG) 01/25/17 16:15 IgG 1059.1 mg/dL (700.0-1600.0) 01/27/17 13:45 IgA 268.8 mg/dL (70.0-400.0) 01/27/17 13:45 IgM 183.8 mg/dL (40.0-230.0) 01/27/17 13:45 BHUPENDRA & SPEP Interp See note (()) 01/27/17 13:45 CHARLEEN Screen Negative (Negative) 01/27/17 13:45 CHARLEEN Titer TEST NOT PERFORMED 01/27/17 13:45 CHARLEEN Titer 2 TEST NOT PERFORMED 01/27/17 13:45 CHARLEEN Pattern TEST NOT PERFORMED 01/27/17 13:45 CHARLEEN Pattern 2 TEST NOT PERFORMED 01/27/17 13:45 Anti-Smooth Muscle Ab Negative (Negative) 01/27/17 13:45 Hepatitis A IgM Ab Negative (NEGATIVE) 01/26/17 06:45 Hep Bs Antigen Negative (NEGATIVE) 01/26/17 06:45 Hep B Core IgM Ab Negative (NEGATIVE) 01/26/17 06:45 Hepatitis C Antibody Negative (NEGATIVE) 01/26/17 06:45 HIV-1 Ab Rapid Screen Non reactive (NON REAC) 01/26/17 06:45 HIV 1&2 Ag/Ab, 4th Gen Nonreactive (Nonreactive) 01/26/17 06:45 Influenza Typ A,B (EIA) Negative for flu a/b (NEGATIVE) 01/25/17 16:15 Blood Type B POSITIVE 01/25/17 18:22 Blood Type Confirm B POSITIVE 01/25/17 18:50 Antibody Screen Negative 01/25/17 18:22 Crossmatch See Detail 01/25/17 18:22 BBK History Checked No verified bt 01/25/17 18:22 Attending/Attestation - Attestation I have personally seen and examined this patient.: Yes I have fully participated in the care of the patient.: Yes I have reviewed all pertinent clinical information, including history, physical exam and plan: Yes Notes (Text): I have seen and examined patient at bedside. This is 46 year old female with history of HTN, mobid obesity, hypothyroidism, anemia, tobacco use, menorrhagia , OA on chronic NSAID's and alcohol abuse who got admitted 3 days ago for evaluation of cough, fatigue and found to have leukopenia, anemia, thrombocytopenia, transaminitis, hypothyroidism and UTI. She has microcytic anemia now s/p 2 units prbc. Further work up revealed iron deficiency. She was given IV iron. Outpatient IV iron arranged by heme onc. Patient also has been taking OTC motrin for osteoarthritis of her knee on daily basis. Advised to stop taking nsaids. GI consult appreciated. Patient refused endoscopy. Alcohol and tobacco use cessation counselling provided. She has been having menorrhagia for a long time. Pelvic ultrasound revealed endometrial hyperplasia. Recommended obgyn as an outpatient. Patient was started on rocephin for UTI. Procal is low. CT chest is negative. Continue duonebs and incentive spirometer. Will send her home on bactrim. Advised her to get outpatient sleep study to r/o JENAE. She has transaminitis most likely due to alcohol abuse. Abdominal ultrasound revealed fatty liver and mild hepatosplenomegaly. Pancytopenia can be secondary to alcohol abuse. She has hypothyroidism. Continue synthroid. Patient also developed sinus bradycardia, mobitz type 1 av block and on telemetry strip sinus pause was noted. Metoprolol was stopped yesterday however she was noticed to have a pause today as well. Discussed with sql report developer who recommended EP evaluation for possible pace maker. Patient is refusing to stay. Patients daughter is at the bedside who was given all the instructions. Patient was advised to stay but she decided to leave against medical advise. Patient will follow up with Dr No, sql report developer, EP, GI and pulp grinder feeder. Dr Vianca Fontanez
--- NOTE | 2017-01-29 14:31 | PN ---
DATE: 01/29/2017 ROOM: 271 SUBJECTIVE: This is a 46-year-old female with recent pancytopenia and also concomitant moderate hypo thyroidism related to drug omission and is now being followed closely for metabolic management. Her repeat chemistries showed a BUN of 10, sodium 142, potassium 4.1, chloride 106, CO2 25, glucose 89, a nd creatinine 0.7. Her repeat thyroid study showed a T4 of 6.9 with a TSH of 23.00 and free T4 of 0. 62. So at this time, we will continue the modified levothyroxine given at 100 mcg once daily before breakfast as ordered. We will titrate incrementally as her serial thyroid studies are obtained and s he will follow with her medical doctor for outpatient thyroid and medical management. She is also un dergoing hematologic workup at this time for the marked anemia and leukopenia as noted. We will foll ow. Poppy Kline MD cc: [id number] TT: 01/29/2017 14:30:48 Confirmation # [id number] Dictation # [id number] tn
[2017-01-29 21:50] LABS: LKM-1 Ab (IgG) <=20.0 U (<=20.0)
== END 2017-01-29 12:21 | disposition left against medical advice (07) | DRG 897 ==
LOC: ED 14:57 → ERH 18:34 → 2RSO 21:35
PROVIDERS: ADMIT Hospitalist; ATTEND Hospitalist
PROC: 30233N1 Transfusion of Nonautologous Red Blood Cells into Peripheral Vein, Percutaneous Approach (ICD-10-PCS; principal; 2017-01-25)
DX: D61.818 Other pancytopenia (principal); N39.0 Urinary tract infection, site not specified; I44.1 Atrioventricular block, second degree; E87.6 Hypokalemia; E66.01 Morbid (severe) obesity due to excess calories; D50.0 Iron deficiency anemia secondary to blood loss (chronic); F10.10 Alcohol abuse, uncomplicated; I10 Essential (primary) hypertension; D25.9 Leiomyoma of uterus, unspecified; R16.2 Hepatomegaly with splenomegaly, not elsewhere classified; K76.0 Fatty (change of) liver, not elsewhere classified; E03.9 Hypothyroidism, unspecified; N92.0 Excessive and frequent menstruation with regular cycle; F17.210 Nicotine dependence, cigarettes, uncomplicated; E78.5 Hyperlipidemia, unspecified; E06.3 Autoimmune thyroiditis; M17.9 Osteoarthritis of knee, unspecified; N85.00 Endometrial hyperplasia, unspecified; G43.909 Migraine, unspecified, not intractable, without status migrainosus; B96.20 Unspecified Escherichia coli [E. coli] as the cause of diseases classified elsewhere; Y90.9 Presence of alcohol in blood, level not specified; Z79.1 Long term (current) use of non-steroidal anti-inflammatories (NSAID); Z68.42 Body mass index [BMI] 45.0-49.9, adult; Z91.14 Patient's other noncompliance with medication regimen

== ENCOUNTER 2017-08-08 02:16 | Emergency (ER) | payer MEDICAID ==
[2017-08-08 02:16] VITALS: BMI 15.4
--- NOTE | 2017-08-08 02:39 | ED PDOC ---
Arrival/HPI - General Chief Complaint: Chest Pain Time Seen by Provider: 08/08/17 02:18 Historian: Patient - History of Present Illness Narrative History of Present Illness (Text): 08/08/17 02:36 Latanya Carbajal is a 46 year old female, whose past medical history includes hypertension, who presents to the emergency department complaining of chest pain for about an hour. Patient describes pain localized to lower chest. Patient notes that she has not been taking her hypertension medication. Patient denies any fever, chills, nausea, vomiting, diarrhea, urinary symptoms, back pain, neck pain, headache, dizziness, trauma/injury, suicidal/homicidal ideation or any other complaints. Patient endorses that she is an active smoker. Time/Duration: 1 hour Symptom Onset: Gradual Symptom Course: Unchanged Context: Home Past Medical History - Provider Review Nursing Documentation Reviewed: Yes - Infectious Disease Hx of Infectious Diseases: None - Reproductive Menopause: No - Cardiac Hx Hypertension: Yes - Pulmonary Hx Respiratory Disorders: No - Neurological Hx Neurological Disorder: No - HEENT Hx HEENT Disorder: No - Renal Hx Renal Disorder: No - Endocrine/Metabolic Hx Hypothyroidism: Yes - Hematological/Oncological Hx Blood Disorders: No - Integumentary Hx Dermatological Disorder: No - Musculoskeletal/Rheumatological Hx Musculoskeletal Disorders: No Other/Comment: Right knee injury recently. Pt reports a pull. No other info available. - Gastrointestinal Hx Gastrointestinal Disorders: No - Genitourinary/Gynecological Hx Genitourinary Disorders: No - Psychiatric Hx Psychophysiologic Disorder: No Hx Substance Use: No Family/Social History - Physician Review Nursing Documentation Reviewed: Yes Family/Social History: No Known Family HX Smoking Status: Heavy Smoker > 10 Cigarettes Daily Hx Alcohol Use: Yes Hx Substance Use: No Allergies/Home Meds Allergies/Adverse Reactions: Allergies No Known Allergies Allergy (Verified 08/08/17 02:42) Home Medications: Home Meds Medication Instructions Recorded Confirmed Metoprolol Succinate [Toprol XL] 50 mg PO DAILY 09/19/16 08/08/17 Review of Systems - Physician Review All systems were reviewed & negative as marked: Yes - Review of Systems Constitutional: absent: Night Sweats Eyes: absent: Vision Changes ENT: absent: Hearing Changes Respiratory: absent: SOB Cardiovascular: Chest Pain Gastrointestinal: absent: Abdominal Pain Genitourinary Female: absent: Dysuria, Frequency Musculoskeletal: absent: Arthralgias, Back Pain Skin: absent: Rash, Pruritis Neurological: absent: Headache, Dizziness Endocrine: absent: Diaphoresis, Polyuria Hemo/Lymphatic: absent: Adenopathy Psychiatric: absent: Depression Physical Exam Vital Signs Reviewed: Yes Vital Signs Pulse Resp BP Pulse Ox 08/08/17 06:16 76 16 107/74 99 08/08/17 04:16 76 16 120/71 98 08/08/17 02:16 92 H 18 136/88 96 Blood Pressure: Normal Pulse: Tachycardic Respiratory Rate: Normal Appearance: Positive for: Well-Appearing, Non-Toxic, Comfortable Pain Distress: None Mental Status: Positive for: Alert and Oriented X 3 Medical Decision Making ED Course and Treatment: 08/08/17 02:39 Impression: 46 year old female complaining of chest pain that began about one hour ago. Differential Diagnosis included but are not limited to: Plan: -- EKG -- Chest X-ray -- Labs -- Reassess and disposition Prior Visits: Notes and results from previous visits were reviewed. Patient last seen in the ED on 01/25/17 for coughing, fatigue, and congestion for 4-5 days. Patient was admitted to telemetry for further evaluation. Progress Notes: EKG: Ordered, reviewed, and independently interpreted the EKG. Rate : 92 BPM Rhythm : NSR Interpretation : PACs. Non-specific ST-T changes. Comparison : No previous EKG for comparison. 08/08/17 05:54 Case discussed with medical voucher clerk and Dr. Tenorio, who accept patient to hospitalist service. 08/08/17 05:56 CT Angiography Chest With Intravenous Contrast: Dictated and Authenticated by: Sheila Salinas MD FINDINGS: Pulmonary arteries: No pulmonary embolism. Aorta: No thoracic aortic aneurysm. Lungs: No mass. No consolidation. Interstitial thickening, unchanged from prior. Pleural spaces: No significant effusion. No pneumothorax. Heart: The heart is enlarged, without significant pericardial effusion. No evidence of right heart dysfunction. Bones: No acute fracture. Lymph nodes: No pathologically enlarged lymph nodes. IMPRESSION: Limited examination secondary to poor bolus timing is without pulmonary embolism. Findings within the bilateral pulmonary parenchymal suggesting chronic interstitial lung disease - Lab Interpretations Lab Results: 08/08/17 02:50 08/08/17 02:50 Lab Results 08/08/17 02:50: WBC 5.3 D, RBC 3.80, Hgb 10.1 L, Hct 33.1 L, MCV 87.1, MCH 26.6 , MCHC 30.5 L, RDW 17.8 H, Plt Count 160, MPV 10.1 08/08/17 02:50: Sodium 139, Potassium 4.0, Chloride 107, Carbon Dioxide 22, Anion Gap 14, BUN 10, Creatinine 0.7, Est GFR ( Amer) > 60, Est GFR (Non- Af Amer) > 60, Random Glucose 105, Calcium 9.0, Total Bilirubin 0.4, AST 70 H, ALT 84 H, Alkaline Phosphatase 84, Lactate Dehydrogenase 556, Total Creatine Kinase 93, Troponin I < 0.01, Total Protein 7.3, Albumin 4.2, Globulin 3.1, Albumin/Globulin Ratio 1.4 08/08/17 02:50: PT 12.3, INR 1.13 H, APTT 25.6, D-Dimer, Quantitative 644 H I have reviewed the lab results: Yes - RAD Interpretation Radiology Orders: 08/08/17 02:32 CHEST PORTABLE [RAD] Stat 08/08/17 04:01 ANGIO CHEST PE PROTOCOL [CT] Stat - Medication Orders Current Medication Orders: Discontinued Medications Aspirin (Aspirin) 325 mg PO ONCE STA Stop: 08/08/17 02:46 Last Admin: 08/08/17 03:00 Dose: 325 mg Morphine Sulfate (Morphine) 2 mg IVP STAT STA Stop: 08/08/17 02:46 Last Admin: 08/08/17 03:00 Dose: Not Given Non-Admin Reason: Patient Refused MAR Pain Assessment Document 08/08/17 03:00 JOL (Rec: 08/08/17 03:00 JO [id number]) Pain Reassessment Is this a pain reassessment? No Sleep Is patient sleeping during reassessment? No Presence of Pain Presence of Pain Yes Pain Scale Used Pain Scale Used Numeric Location Pain Location Body Site Chest Description Intensity of Pain at present 7 Pain Behavior Moaning Rubbing Site Restlessness Facial Grimacing IVP Administration Document 08/08/17 03:00 JOL (Rec: 08/08/17 03:00 JO [id number]) Charges for Administration # of IVP Administrations 1 - Scribe Statement The provider has reviewed the documentation as recorded by the Rosario Aguiar Provider Scribe Attestation: All medical record entries made by the Rosario were at my direction and personally dictated by me. I have reviewed the chart and agree that the record accurately reflects my personal performance of the history, physical exam, medical decision making, and the department course for this patient. I have also personally directed, reviewed, and agree with the discharge instructions and disposition. Disposition/Present on Arrival - Present on Arrival Any Indicators Present on Arrival: No History of DVT/PE: No History of Uncontrolled Diabetes: No Urinary Catheter: No History of Decub. Ulcer: No History Surgical Site Infection Following: None - Disposition Have Diagnosis and Disposition been Completed?: Yes Diagnosis: Chest pain Disposition: HOSPITALIZED Disposition Time: 05:45 Patient Plan: Observation Condition: STABLE
[2017-08-08] MEDS ORDERED: Morphine 2 mg/ml ISec IVP STA (02:45)
[2017-08-08 03:05] LABS: HEMATOCRIT 33.1 % (36.0-48.0); MEAN CELL VOLUME 87.1 fl (80.0-105.0); MEAN CORPUSCULAR HEMOGLOBIN 26.6 pg (25.0-35.0); MEAN CORPUSCULAR HGB CONC 30.5 g/dl (31.0-37.0); MEAN PLATELET VOLUME 10.1 fl (7.0-11.0); RED CELL DISTRIBUTION WIDTH 17.8 % (11.5-14.5); WHITE BLOOD COUNT 5.3 10^3/ul (4.5-11.0)
[2017-08-08 03:27] LABS: INR 1.13 (0.93-1.08); PARTIAL THROMBOPLASTIN TIME 25.6 Seconds (25.1-36.5)
[2017-08-08 03:34] LABS: ALB/GLOB RATIO 1.4 (1.1-1.8); ALKALINE PHOSPHATASE 84 U/L (38-126); ALT/SGPT 84 U/L (7-56); AST/SGOT 70 U/L (14-36); BILIRUBIN,TOTAL 0.4 mg/dL (0.2-1.3); BLOOD UREA NITROGEN 10 mg/dL (7-21); CARBON DIOXIDE 22 mmol/L (21-33); CHLORIDE 107 mmol/L (98-107); GFR AFRICAN-AMERICAN > 60; GLUCOSE,RANDOM 105 mg/dL (70-110); SODIUM 139 mmol/L (132-148); TOTAL PROTEIN 7.3 g/dL (5.8-8.3)
[2017-08-08 03:58] LABS: TROPONIN I < 0.01 ng/mL
--- NOTE | 2017-08-08 05:46 | CT ---
EXAM: CT Angiography Chest With Intravenous Contrast CLINICAL HISTORY: 46 years old, female; Signs and symptoms; Shortness of breath; Additional info: SOB TECHNIQUE: Axial computed tomographic angiography images of the chest with intravenous contrast using pulmonary embolism protocol. All CT scans at this facility use one or more dose reduction techniques, viz.: automated exposure control; ma/kV adjustment per patient size (including targeted exams where dose is matched to indication; i.e. head); or iterative reconstruction technique. MIP reconstructed images were created and reviewed. Coronal and sagittal reformatted images were created and reviewed. CONTRAST: 96 mL of omni 350 administered intravenously. COMPARISON: CT - ANGIO CHEST PE PROTOCOL 2017-01-25 23:05 Examination is limited for the detection of pulmonary embolus secondary to poor bolus timing FINDINGS: Pulmonary arteries: No pulmonary embolism. Aorta: No thoracic aortic aneurysm. Lungs: No mass. No consolidation. Interstitial thickening, unchanged from prior. Pleural spaces: No significant effusion. No pneumothorax. Heart: The heart is enlarged, without significant pericardial effusion. No evidence of right heart dysfunction. Bones: No acute fracture. Lymph nodes: No pathologically enlarged lymph nodes. IMPRESSION: Limited examination secondary to poor bolus timing is without pulmonary embolism. Findings within the bilateral pulmonary parenchymal suggesting chronic interstitial lung disease
[2017-08-08 06:34] VITALS: BP 107/74; PULSE 76; RESP 16; O2SAT 99
--- NOTE | 2017-08-08 07:33 | CP.PCM.PCO ---
<Malvin Shaver - Last Filed: 08/08/17 07:27> Addendum Addendum: 08/08/17 07:28 Ms. Carbajal was seen and examined. Pt states that she is feeling much better with the medication that she has received and is not willing to be transferred to the inpatient medicine floors for further workup and treatment. She states that she has been admitted to the hospital before and told that she needed transfusions and a pacemaker and was not happy with the treatment and is not willing to undergo the workup again. She states that the root issue of her symptoms is her smoking and is adamant about smoking cessation. Pt was educated about the risks of leaving before further workup to r/o ACS vs underlying pulmonary diseases/embolism and her anemia, as well as the benefits of staying to be worked up and treated. Pt states that she understands, and is still wishing to leave AMA. AMA form was signed with nurse witnessing. <Vianca Fontanez - Last Filed: 08/08/17 15:07> Attending/Attestation - Attestation I have personally seen and examined this patient.: No I have fully participated in the care of the patient.: No Notes (Text): Patient left AMA before I could see the patient
--- NOTE | 2017-08-08 09:03 | RAD ---
HISTORY: Chest pain COMPARISON: 01/25/2017. FINDINGS: LUNGS: The lungs are well inflated. There is mild pulmonary venous congestion. PLEURA: No significant pleural effusion identified, no pneumothorax apparent. CARDIOVASCULAR: Normal. OSSEOUS STRUCTURES: No significant abnormalities. VISUALIZED UPPER ABDOMEN: Normal. OTHER FINDINGS: None. IMPRESSION: No acute findings.
--- NOTE | 2017-08-08 09:32 | CARD ---
APPROVED REPORT EKG Measurement Heart [id number] <Conclusion> Sinus rhythm with1 PVC Otherwise normal ECG No change except 1 PVC now.
== END 2017-08-08 07:40 | disposition left against medical advice (07) ==
LOC: ED 02:16 → ERH 05:47 → UNDOADMOB 05:47 → ERH 06:31 → ED 07:35 → UNDODISOB 08:28
DX: R07.9 Chest pain, unspecified (principal); I10 Essential (primary) hypertension; F17.210 Nicotine dependence, cigarettes, uncomplicated
CPT/HCPCS: 71010; 71275; 80053; 82550; 83615; 84484; 85027; 85378; 85610; 85730; 93005; 96374; 99285; J1885